=== PATIENT | male | born 1955 | race Caucasian/White ===

== ENCOUNTER 2023-10-08 12:00 | Inpatient (IN) | payer MEDICARE, SELFPAY ==
[2023-10-02] VITALS (8 sets, daily range): BP systolic 137–193; BP diastolic 70–97
[2023-10-02 14:15] LABS: % Basophils 0.7 % (0-2); % Eosinophils 0.7 % (0-6); % Immature Granulocytes 0.9 % (0-0.5); % Lymphocytes 21.9 % (20.5-51.1); % Monocytes 6.6 % (1.7-9.3); % Neutrophils 69.2 % (42.2-75.2); Absolute Basophils 0.1 10^3/uL (0-0.2); Absolute Eosinophils 0.1 10^3/uL (0-0.7); Absolute Immature Granulocytes 0.1 10^3/uL (0-0.05); Absolute Lymphocytes 1.8 10^3/uL (1.2-3.4); Absolute Monocytes 0.5 10^3/uL (0.1-0.6); Absolute Neutrophils 5.7 10^3/uL (1.4-6.5); Hematocrit 38.8 % (39.0-52.0); Hemoglobin 13.7 g/dL (13.0-18.0); Mean Corp Hgb Conc. 35.3 g/dL (33.0-37.0); Mean Corpuscular Hgb 28.4 pg (27.0-31.0); Mean Corpuscular Volume 80.5 fL (80.0-94.0); Nucleated Red Blood Cells % 0 % (-); Platelet Count 434 10^3/uL (130-400); Red Blood Cell Count 4.82 10^6/uL (4.70-6.10); Red Cell Dist. Width 14.3 % (11.5-14.5); White Blood Cell Count 8.2 10^3/uL (4.8-10.8)
[2023-10-02 14:26] LABS: ALT (SGPT) 11 U/L (0-50); AST (SGOT) 17 U/L (17-59); Albumin 4.5 g/dl (3.5-5.0); Alkaline Phosphatase 131 U/L (38-126); Blood Urea Nitrogen 18 mg/dl (9-20); Calcium 10.2 mg/dl (8.4-10.2); Carbon Dioxide 24 mmol/L (22-30); Chloride 92 mmol/L (98-107); Glucose 286 mg/dl (70-99); Sodium 136 mmol/L (135-145); Total Bilirubin 0.9 mg/dl (0.2-1.3); Total Protein 7.2 g/dl (6.3-8.2); eGFR > 60.00
--- NOTE | 2023-10-02 18:09 | ED.GENMED ---
History of Present Illness
General
Chief Complaint: Breathing Problem
Source: patient and family
Exam Limitations: none
Time Seen by Provider: 10/02/23 17:10
Nursing documentation reviewed up to this point in time: agreed with
Travel History
Have you had any contact with someone who has COVID-19?: No
Do you have any symptoms of coronavirus? Fever > 100 degrees, chills, cough, shortness of breath, sore throat, loss of taste or smell, muscle aches, or headache?: No
History of Present Illness
History of Present Illness:
Patient is a 68-year-old male with past medical history of chronic pain, diabetes skin cancer ,depression ,brought by family for evaluation. Family reports patient has a history of noncompliance has not taken his medicine in over a month for
diabetes. They report pt has a history chronic pain family is concerned that he has been using hydrocodone. Pt admits to using hydrocodone but then reports he stopped because he was loosening. Patient was brought to the ER because they found him
on the floor .brother and sister both here sister reports that she feels that he is getting up and not taking care of himself. They do tell me that about 1 month ago they found him in the basement overdosed on pills and had Saran wrap wrapped
around his body. They did not bring patient to hospital for that episode.
Patient does present awake alert. He complains of pain to his right shoulder.
Patient tells me he does not take his insulin because he does not eat and does not have an appetite. He has not taken any insulin or his diabetic oral medication as well.
He denies any fever chills
Past History
Past History
ED Past Medical History: Other (Diabetes, small fiber peripheral neuropathy, IBS, prostate cancer)
Social History
Tobacco: Non-smoker
Alcohol: None
Drug: None
Living: with family
Review of Systems
Review of Systems
Allergies reviewed?: Yes
Other source history: family
All Other Systems: ROS reviewed and negative except as documented in HPI and ROS
Constitutional: Reports fatigue
Respiratory: Reports no symptoms
Cardiac: Reports no symptoms
ABD/GI: Reports anorexia
: Reports no symptoms
Musculoskeletal: Reports other (right shoulder pain )
Skin: Reports no symptoms
Neurological: Reports no symptoms
Psychiatric: Reports depression
Phy Exam
General Physical Exam
General Presentation: no apparent distress
General age: appears older than age
General Skin: warm and dry
General Habitus: frail
General Mental: alert
General Hydration: dry mucous membranes
Cardiovascular Exam
Cardiovascular Exam: regular rate/rhythm, no murmur and normal peripheral pulses
Pulmonary Exam
Pulmonary Exam: lungs clear and no respiratory distress
Gastrointestinal Exam
Gastrointestinal Exam: non tender and soft
Neurological Exam
Neurological Exam: alert and oriented x3
[place] Coma Scale
Eye Opening: Spontaneous
Verbal Response: Oriented
Motor Response: Obeys Commands
GCS Total Score: 15
Musculoskeletal Exam
Musculoskeletal Exam: full ROM and other (Normal inspection to right shoulder full range of motion but patient complains of discomfort)
Skin Exam
Skin Exam: normal color, warm/dry and other (Scattered areas of redness to face scalp, old appearing laceration to dorsal left forearm)
Psychiatric Exam
Psychiatric Exam: depressed and other (Flat affect, admits to depression denies suicidal thoughts)
Scores
Heart Failure Risk
Heart Failure Risk Score: Not Applicable
Course
Orders/Labs/Results
Orders:
Orders
10/02/23 13:54
EKG [Electrocardiogram (*1)] Urgent
Reason for Study: Shortness of Breath
CR Shoulder - Right Min 2 View Urgent
Reason For Exam: pain
10/02/23 13:55
EKG- Treatment ONCE
10/02/23 14:04
Complete Blood Count/With Diff Urgent
Comprehensive Metabolic Panel Urgent
10/02/23 18:17
0.9% Sodium Chloride 1000 ml [Nss] 1,000 ml IV BOLUS
Potassium Chloride 10% Elixir [KCl Elixir] 40 meq PO NOW STA
Abnormal Lab Results
10/02/23
14:04
Hct 38.8 L %
(39.0-52.0)
Plt Count 434 H 10^3/uL
(130-400)
Abs Immat Gran (auto) 0.1 H 10^3/uL
(0-0.05)
Immature Gran % 0.9 H %
(0-0.5)
Potassium 3.0 L mmol/L
(3.5-5.1)
Chloride 92 L mmol/L
(98-107)
Glucose 286 H mg/dl
(70-99)
Alkaline Phosphatase 131 H U/L
(38-126)
10/02/23 14:04
10/02/23 14:04
Vital Signs
Initial and Last Documented VS:
Initial Vital Signs
Temp Pulse Resp BP Pulse Ox
98.5 F 76 18 152/74 100
10/02/23 13:50 10/02/23 13:50 10/02/23 13:50 10/02/23 13:50 10/02/23 13:50
Last Documented Vital Signs
Temp Pulse Resp BP Pulse Ox
98.5 F 76 18 152/74 100
10/02/23 13:50 10/02/23 13:50 10/02/23 13:50 10/02/23 13:50 10/02/23 13:50
MDM/Problems Addressed
Differential Diagnosis Includes:
Not limited to failure to thrive hyperglycemia electrolyte abnormality dehydration depression
MDM/Problems Addressed:
Patient is a 68-year-old male who was brought by family. Patient's brother and sister brought him here as they are concerned he is not eating and drinking he is giving up he is failure to thrive. He is awake alert very cachectic. He is a diabetic
but stopped medications 1 month ago. He denies any chest pain shortness of breath. Complains of right shoulder pain. Family reports patient is laying on his right side on his right shoulder most of the day. He has not been eating or drinking for
the past 1 month .
He denies any fevers and is afebrile with a normal white count stable hemoglobin potassium low at 3.0 normal kidney function normal sodium . No acute findings on shoulder x-ray no trauma. Patient reportedly had a suicide attempt a month ago as per
family he was not brought to the ER for that. He does admit to feeling depressed and is on depression medicine but denies any suicidal thoughts or ideation presently.
Patient was given fluids potassium here in the ER will require admission for failure to thrive. Patient may need rehab. Patient is agreeable to this
*Critical Care Note
Total Time (30-74mins, 75-104mins- exclusive of procedures): Not Applicable
ED Attending Note
-
Portions of this chart may have been created with voice recognition software.� Occasional wrong word or��sound alike� substitutions may have occurred due to the inherent limitations of voice recognition software.
Discharge Plan
Departure
Patient Disposition: Admit
Date of Disposition: 10/02/23
Time of Disposition: 19:25
Admit to: Med/Surg
Admit to doctor: hospitalist
Presentation/result/management discussed w/ accepting MD/DO: Hospitalist
Patient with high blood pressure during this ER visit?: Yes
Condition: Fair
Covid-19: Not Applicable
Discharge Problem:
Adult failure to thrive, Acute hypokalemia
Prescriptions:
No Action
atorvastatin [Lipitor] 40 MG tablet
40 mg PO DAILY
trazodone 50 MG tablet
25 mg PO HS
tramadol 50 MG tablet
50 mg PO DAILY PRN (Reason: pain)
amlodipine 10 MG tablet
10 mg PO DAILY
pantoprazole 40 MG tablet,delayed release (DR/EC)
40 mg PO DAILY
insulin NPH isoph U-100 human [Novolin N NPH U-100 Insulin] 1,000 UNITS/10 ML suspension
0 units SC AC
Patient Comments:
Sliding scale
lisinopril 5 MG tablet
5 mg PO DAILY
ipratropium bromide 1 SPRAY spray,non-aerosol
2 spray intranasal DAILY
pregabalin [Lyrica] 100 MG capsule
100 mg PO BID
Referrals:
Eden Arreguin DO [Family Provider] -
Interventions
Interventions:
*Risk Screen - Suicide Last Done: 10/02/23 13:50
*General Assessment Last Done: 10/02/23 13:50
*Neglect/Abuse Screening Last Done: 10/02/23 17:13
*ED COVID-19 Vaccine History Last Done: 10/02/23 13:50
ED- Cardiac Assessment Last Done: 10/02/23 18:50
ED- Pulmonary Assessment Last Done: 10/02/23 18:50
Discharge Date and Time
Print Language: CHINESE
[2023-10-02] MEDS: KCL ELIXIR 40 MEQ PO (18:44)
[2023-10-02] MEDS: NSS 1000 IV ×2 (18:45→22:36)
[2023-10-02] MEDS: TORADOL 15 MG IV (19:37)
--- NOTE | 2023-10-02 19:39 | W.PN.UPDATE ---
Addendum entered and electronically signed by Mariela Rubin MD 10/02/23 20:31:
On exam patient is frail appearing, cachectic. poor dental hygiene. non-labored respirations, abdomen benign, no swelling, scattered erythema on face and scalp. patient able to communicate clearly but affect flat
Original Note:
Update Note
Progress Note Update
This update note will serve as an addendum to the H&P completed by Macey TUCKER.
I saw and examined the patient.
The PATTERNMAKER METAL BENCH's note was reviewed and I agree with the note.
Comment:
Mr. Leonidas Minaya is a 68 yo man with hx DM, prostate CA, skin cancer, depression with an episode of SI last month (was not brought to the hospital) presents to the ER for family evaluation for failure to thrive. Patient lives in the basement of a
house with his siblings. He has history depression and chronic pain on opiate. He has had no appetite and therefore has not been taking his insulin because he doesn't want his sugar to go too low. He was found on floor by siblings today and
agreed to come to hospital given pain in right shoulder.
Triage vitals: T 98.5, P 76, RR 18, BP 152/74, SpO2 100%
Labs: WBC 8.2, Hg 13.7, PLT 434, Na 136, K+ 3.0, Cr 0.7, Glucose 286, Alk Phos 131
Shoulder X-Ray
FINDINGS:
2 radiographs of the right shoulder were obtained.
There is no fracture or dislocation.
The regional osseous system is normal in architecture.
IMPRESSION:
Normal.
Failure to Thrive
-admit to observation
-add on CK
-IVF gentle
-dietary consult
-PT/OT
-patient will likely need placement
Depression
-psychiatry consult
-hold ALUMINUM HYDROXIDE PROCESS OPERATOR Zoloft as patient states he has not been taking
Hypokalemia
-replete
-recheck tomorrow
-add on Mag
Chronic pain, opiate dependence
-change norco to q 12 PRN (from q8) given likely contributing to anorexia and FTT
-lidocaine patch
-xray shoulder without fracture
Diabetes
-ISS low for now given low appetite
-PATTERNMAKER METAL BENCH DM consult
-add on A1c
Neuropathic pain
-continue ALUMINUM HYDROXIDE PROCESS OPERATOR Pregabalin
DNR - patient is coherent during my conversation; denies SI. He appears competent to make this decision stating 'I've had a great life and now I'm old with chronic health conditiions.'
--- NOTE | 2023-10-02 19:55 | HPS.HSE ---
Family Physician
-
Family Physician: Eden Arreguin
Chief Complaint
-
Failure to Thrive
History of Present Illness
Patient is a 68 y/o male past medical history of diabetes mellitus, hypertension, chronic pain and depression who presents with failure to thrive. Additional history is obtained from patient's brother and sister at the bedside. Patient lives in the
basement of the house where his sister lives. Patient has not been taking care of himself over the past month or so. Family notes he stopped taking his insulin for his diabetes, and stopped eating. Family reports patient has been experiencing
worsening depression, and he did attempt suicide several weeks ago but they did not bring him the emergency department for evaluation. Patient has been lying around for several days, and family brought him to the emergency department for evaluation.
Medical History
Past Medical History
Past Medical History: Reports Other
Additional Past Medical History:
Diabetes Mellitus, Type II
Essential Hypertension
Hyperlipidemia
GERD
Irritable Bowel Syndrome
Prostate Cancer
Chronic Pain
Depression
Past Surgical History: Reports Other
Additional Past Surgical History:
Spinal Stimulator
Social History
Tobacco: Former Smoker (Quit about 20 years ago)
Alcohol: Former
Family History
Family History: Not pertinent
Allergies / Home Medications
Allergies reflects when Allergies were last updated in [facility].
Home Medications with original date entered in [facility]
Allergy/Medication List:
Allergies
Allergy/AdvReac Type Severity Reaction Status Date / Time
No Known Allergies Allergy Verified 10/02/23 13:54
Home Medications
hydrocodone 5 mg-acetaminophen 325 mg tablet 1 tab PO Q8H PRN moderate pain 10/02/23
losartan 50 mg-hydrochlorothiazide 12.5 mg tablet 1 tab PO DAILY 10/02/23
pregabalin 150 mg capsule 150 mg PO Q8H nerve/muscle pain 10/02/23
sertraline 25 mg tablet 25 mg PO DAILY 10/02/23
sertraline 50 mg tablet 50 mg PO DAILY 10/02/23
tizanidine 4 mg tablet 4 mg PO Q8H PRN muscle spasms 10/02/23
Review of Systems
-
A 12 point ROS was completed and negative except as noted: Yes
Constitutional: Reports Weight Loss; Denies Fever or Chills
Respiratory: Denies Cough or Trouble Breathing
Cardiac: Denies Chest Pain or Palpitations
Abdomen/GI: Reports Anorexia
Physical Exam
Vital Signs
Vital Signs
Temp Pulse Resp BP Pulse Ox
98.5 F 76 18 152/74 100
10/02/23 13:50 10/02/23 13:50 10/02/23 13:50 10/02/23 13:50 10/02/23 13:50
Physical Exam
General: Conversant, Appears Chronically Ill and Cachectic
HEENT: Other (Dry Mucous Membrane; Poor Dentition)
Respiratory: Clear and Non Labored Respirations
Cardiac: S1/S2 and Regular Rhythm
GI: Soft and Non Tender
Rectal: Deferred by Provider
Musculoskeletal: No Clubbing, No Cyanosis and No Edema
Skin: Warm and Dry
Neuro: Awake, Alert, Oriented and Nonfocal/grossly intact
Psych: Calm and Depressed
Laboratory Results
-
10/02/23 14:04
10/02/23 14:04
Laboratory Results
Total Bilirubin 0.9 mg/dl (0.2-1.3) 10/02/23 14:04
AST 17 U/L (17-59) 10/02/23 14:04
ALT 11 U/L (0-50) 10/02/23 14:04
Alkaline Phosphatase 131 U/L (38-126) H 10/02/23 14:04
Data Reviewed
-
Lab Data: Labs Reviewed by me
Impression/Plan
-
Failure to Thrive, suspect related to Severe Depression
-Consult Psych
Hypokalemia
-Replace potassium
-Check magnesium level
Severe Protein Calorie Malnutrition
-Consult Dietary
Chronic Pain s/p Spinal Stimulator
-Suspect component for peripheral neuropathy
-Continue Lyrica 150mg TID
-Decrease hydrocodone/acetaminophen [id number]
-Add Lidocaine to Right Shoulder
Diabetes Mellitus, Type II
-Check HgbA1c
-Monitor sugars and continue coverage insulin
-Consider adding long acting insulin based on sugar
Essential Hypertension
-Patient has not taken meds for several weeks
-Monitor blood pressure closely
DVT proph: Lovenox
Code Status: DNR
[2023-10-02 20:20] LABS: Magnesium 2.1 mg/dl (1.6-2.3)
[2023-10-02] MEDS: KCL 260 MEQ IV (20:49)
[2023-10-02 20:51] LABS: TSH Reflex To Free T4 0.97 uIU/ml (0.47-4.68)
[2023-10-02 21:51] LABS: Vitamin B12 758 pg/ml (239-931)
[2023-10-02 22:22] LABS: Creatine Phosphokinase 42 U/L (55-170)
[2023-10-02] MEDS: LYRICA 150 MG PO (22:42)
[2023-10-03] VITALS (7 sets, daily range): BP systolic 134–166; BP diastolic 64–84; PULSE 86; BMI 20.4; BMI 19.4
[2023-10-03] MEDS: MELATONIN 5 MG PO (00:55)
[2023-10-03 06:46] LABS: Hematocrit 35.7 % (39.0-52.0); Hemoglobin 12.3 g/dL (13.0-18.0); Mean Corp Hgb Conc. 34.5 g/dL (33.0-37.0); Mean Corpuscular Hgb 28.3 pg (27.0-31.0); Mean Corpuscular Volume 82.1 fL (80.0-94.0); Mean Platelet Volume 8.9 fL (7.4-10.4); Platelet Count 352 10^3/uL (130-400); Red Blood Cell Count 4.35 10^6/uL (4.70-6.10); Red Cell Dist. Width 14.4 % (11.5-14.5); White Blood Cell Count 6.6 10^3/uL (4.8-10.8)
[2023-10-03 07:17] LABS: Blood Urea Nitrogen 17 mg/dl (9-20); Calcium 9.3 mg/dl (8.4-10.2); Carbon Dioxide 25 mmol/L (22-30); Chloride 104 mmol/L (98-107); Estimated Creatinine Clearance 90 ml/min; Glucose 164 mg/dl (70-99); Potassium 3.3 mmol/L (3.5-5.1); Sodium 138 mmol/L (135-145); eGFR > 60.00
--- NOTE | 2023-10-03 07:42 | W.PN.HOSP.TC ---
Today's Communication/Plan
-
see A/P
Assessment / Plan
Assessment / Plan
HPI: 68 yo man with hx DM, prostate CA, skin cancer, depression with an episode of SI last month (was not brought to the hospital) presented to the ER by family for evaluation of failure to thrive. Patient lives in the basement of a house with his
siblings. He has history of depression and chronic pain on opiate. He has had no appetite and therefore has not been taking his insulin because he doesn't want his sugar to go too low. He was found on floor by siblings and agreed to come to
hospital given pain in right shoulder.
Shoulder X-Ray: Normal.
A/P:
# Failure to Thrive
CPK at 40 hence r/o rhabdo
observe off additional gentle IVF
dietary consult
PT/OT
patient will likely need placement
# Depression
TSH WNL at 0.97
psychiatry consult
hold ASSISTANT PURCHASING MANAGER Zoloft as patient states he has not been taking anyway
# Hypokalemia
replete
Mag level WNL
# Chronic pain, opiate dependence
change ASSISTANT PURCHASING MANAGER norco to Q12 PRN (from q8) given likely contributing to anorexia and FTT
lidocaine patch
xray shoulder without fracture
# Neuropathic pain and ambulatory dysfunction
continue ASSISTANT PURCHASING MANAGER Pregabalin
PT OT eval as above
# Diabetes
ISS low for now given low appetite
MEAT STUFFER DM consult
Follow A1c
DVT ppx: Lovenox SQ
DNR - patient is coherent during conversation; denies SI. He appears competent to make this decision stating 'I've had a great life and now I'm old with chronic health conditions.'
Anticipated Discharge: 24 - 48 hours
Subjective/Interval History
-
Date of Service: October 03, 2023
Objective Data
-
Labs:
Laboratory Results
10/03/23
06:09
WBC 6.6
Hgb 12.3 L
Hct 35.7 L
Plt Count 352
Sodium 138
Potassium 3.3 L
Chloride 104
Carbon Dioxide 25
BUN 17
Creatinine 0.6 L
Glucose 164 H
Calcium 9.3
Vital Signs:
Vital Signs
Temp Pulse Resp BP Pulse Ox
36.9 C 78 19 137/64 98
10/02/23 13:50 10/03/23 00:45 10/03/23 00:45 10/03/23 00:00 10/02/23 21:00
Review of Systems
-
All other systems: Reviewed and negative
Neuro: Reports Other (chronic BL LE neuropathy)
Physical Exam
-
General: Well Developed, No Apparent Distress, Comfortable, Conversant and Appears Chronically Ill; Negative Respiratory Distress
HEENT: Normocephalic, Atraumatic, Nose Appears Normal and Ears Appear Normal; Negative Oxygen
Respiratory: Clear to Auscultation and Non Labored Respirations; Negative Accessory Resp Muscle Use
Cardiac: Regular Rhythm and S1/S2
GI: Soft, Nontender, Nondistended and Normal Bowel Sounds
Skin: Warm and Dry
Neuro: Awake, Alert and Oriented
Psych: Calm and Intact Judgement/Insight
Data Reviewed
-
Labs: Labs Reviewed by me
[2023-10-03 08:21] LABS: Glucose - Point of Care 183 mg/dl (70-99)
[2023-10-03 08:42] LABS: Glycohemoglobin (HgbA1c) 10.5 % (4.0-5.6)
[2023-10-03] MEDS: LYRICA 150 MG PO ×3 (08:54→21:36)
[2023-10-03] MEDS: KCL 40 MEQ PO (08:54)
[2023-10-03] MEDS: LIDOCAINE 4% PATCH 1 PATCH TOPICAL (08:55)
[2023-10-03] MEDS: NOVOLOG FLEXPEN-LOW RESISTANCE 1 UNITS SC (11:21)
[2023-10-03] MEDS: NOVOLOG FLEXPEN-LOW RESISTANCE SC ×2 (11:43→17:40)
[2023-10-03 13:29] LABS: Glucose - Point of Care 272 mg/dl (70-99)
[2023-10-03] MEDS: NOVOLOG FLEXPEN-LOW RESISTANCE 3 UNITS SC (13:44)
--- NOTE | 2023-10-03 14:06 | CM ---
Patient seen at bedside in ED. Patient stated that he attempted to hurt himself a month ago, with several methods, pills, bag over head and cutting wrists and he was not taken for treatment by family per patient, patient stated that 'none of his
efforts worked'. Patient stated that he lives with his sister in the basement and has had no control over his bladder for last month. Patient indicated that he had been depressed regarding his circumstances for a while. Patient indicated that his
PCP is Dr. Arreguin and that he was requesting to go to a SNF for assistance to care for himself. Patient uses the [facility]. CM reviewed OBS/ISRAEL form and patient completed form, provided to ammunition storage superintendent for scanning. CM called to patient sister,
Roma who indicated that she was in a physician office and would call CM back. CM reached out to Psych, awaiting assessment. Patient indicated that he has been in a psych facility many years ago (age 33) when all his friends were dying. Patient has
been under the care of a psychiatrist since age 16 to assist him with family relationships and 'being murillo'. Patient indicated that he has not had any other placements for psychiatric supports. Patient currently is OBS and his insurance will not
cover placement. PT/OT recommendation SNF vs home Health due to inconsistent presentation, but patient would need to do full flight of stairs to return home. CM will reach out to SNF options to see if he will be accepted as possible private pay or
MA pending. CM will continue to follow for discharge planning needs.
plan; SNF placement pending Psych assessment and possible level II Passr.
--- NOTE | 2023-10-03 15:51 | CON.MD ---
Consultation - Medical
-
patient seen chart reviewed. spoke with case management. patient is a 68 year old male brought to by family with whom he lives. he was residing in the basement of his sister's and her partner's home . he has been noted to be increasingly
depressed. he made an effort to kill himself by superficially cutting his wrists. he said he feels his body deteriorating and he has not much to look forward to. 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
world. 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 ' you had to own 'your gayness' i didn't come out i flew the hell out'. he has lost 40 lbs in the past several months. no appetite he believes he
has cancer worries about bladder ca particularly as he had prostate ca dx15 years ago. . he does know he has dm and could not afford insulin although now he knows how to get it 'at [facility] he has neuropathy. says he cannot feel his feet and falls
when he tries to stand. if he manages to stand he loses control of bladder and somtimes bowels. he does not enjoy much. no energy. he says he is willing to undergo tests to see what is wrong with him and whether his life can be improved but he
does not have much luis f that this will be the case. pcp put him on zoloft but he took it only three days
past psych hx was in some sort of psychotherapy for much of his life. needed support with all the losses he suffered many friends of aids in his twenties and 30's he nursed both of his parents until they . he was hospitalized psych once
when a friend and he despaired himself. recently prescribed zoloft. not a great fan of meds.
medical hx diabetes neuropathy chronic pain opiate dep lyrica for pain tizanidine for spasms fell c/o shoulder pain and sob shoulder xr normal no cxr noted hx prostate cancer Complaint of incontinence bladder and bowel.. ua pending b12
normal tsh normal low potassium 3.3 mild anemia noted lesions on much of his body arnol left arm large eschar ringed in red
fh depression etoh abuse
substance abuse smokes cannabis for sleep and pain
social grew up locally oldest of three kids. close to sibs and two nephews. 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 lives in sister's basement traveled all over the
world. was a marathon runner.
mse frail appearing 68 year old appears older than age physically but very emotive and engaged in this interview. speech nl rate and tone goal oriented no psychosis mood is dysphoric and rationalizes wish to bc he is frail physically and says
he can only look forward to more deterioration of his body. no psychosis will contract for safety in hospital while his illnesses are addressed above aver intell insight judgment fair, cognition intact
dx major depression
plan while i do see patient as depressed i also feel he may be medically ill ?cancer' certainly appears cachectic but dm also is a major issue and can be the cause. patient is agreeable to hospital and medical workup. there seem to be a number of
issues to address including but perhaps not limited to ??urology consult to allay his fears (or substantiate them ) of bladder cancer and address urinary incontinence. cause of fecal incontinence which he also alleges may need to be addressed.
also skin lesions may need rx. will discuss with him tomorrow whether to resume sertraline or other antidepressant. check folate. psych will follow
[2023-10-03] MEDS: TYLENOL 650 MG PO ×2 (17:35→21:36)
[2023-10-03] MEDS: LOVENOX 40 MG SC (17:36)
[2023-10-03 17:41] LABS: Glucose - Point of Care 99 mg/dl (70-99)
[2023-10-03 18:39] LABS: PSA, Total - Screen < 0.06 ng/ml (0.0-4.0)
[2023-10-03 21:18] LABS: Glucose - Point of Care 196 mg/dl (70-99)
[2023-10-03] MEDS: LANTUS 0.0500000000000000028 UNITS SC (21:36)
[2023-10-03] MEDS: NORCO 5/325 1 TABLET PO (23:25)
[2023-10-04 05:47] VITALS: BMI 16.8
[2023-10-04] MEDS: TYLENOL 650 MG PO ×2 (05:51→14:05)
[2023-10-04 07:10] VITALS: BP 148/81
[2023-10-04 07:22] LABS: Glucose - Point of Care 55 mg/dl (70-99)
[2023-10-04 07:41] LABS: Glucose - Point of Care 66 mg/dl (70-99)
[2023-10-04 08:03] LABS: Glucose - Point of Care 189 mg/dl (70-99)
[2023-10-04] MEDS: OMNIPAQUE 50 ML PO (08:23)
[2023-10-04] MEDS: LIDOCAINE 4% PATCH 1 PATCH TOPICAL (08:25)
[2023-10-04] MEDS: LYRICA 150 MG PO ×3 (08:25→21:00)
[2023-10-04] MEDS: NOVOLOG FLEXPEN-LOW RESISTANCE SC ×2 (08:26→13:24)
[2023-10-04 11:23] LABS: Blood Urea Nitrogen 12 mg/dl (9-20); Calcium 9.3 mg/dl (8.4-10.2); Carbon Dioxide 31 mmol/L (22-30); Chloride 98 mmol/L (98-107); Estimated Creatinine Clearance 76 ml/min; Glucose 55 mg/dl (70-99); Magnesium 1.9 mg/dl (1.6-2.3); Phosphorus 2.1 mg/dl (2.5-4.5); Potassium 3.1 mmol/L (3.5-5.1); Sodium 136 mmol/L (135-145); eGFR > 60.00
--- NOTE | 2023-10-04 11:29 | W.PN.HOSP.TC ---
Today's Communication/Plan
-
see A/P
Assessment / Plan
Assessment / Plan
HPI: 68 yo man with hx DM, prostate CA, skin cancer, depression with an episode of SI last month (was not brought to the hospital) presented to the ER by family for evaluation of failure to thrive. Patient lives in the basement of a house with his
siblings. He has history of depression and chronic pain on opiate. He has had no appetite and therefore has not been taking his insulin because he doesn't want his sugar to go too low. He was found on floor by siblings and agreed to come to
hospital given pain in right shoulder.
Shoulder X-Ray: Normal.
A/P:
# Failure to Thrive
# severe protein caloric malnutrition
CPK at 42 hence r/o rhabdo
observe off additional gentle IVF
dietary on board
PT/OT [facility] SNF vs ; patient will likely need placement
CT CAP ordered for cancer work up, noted liver lesion
Will check MRI AP for liver lesion
HIV negative, PSA negative
# Depression
TSH WNL at 0.97
psychiatry on board, [facility] medical/cancer work up, restarted Zoloft
# Hypokalemia
# Hypophosphatemia
# Likely refeeding syndrome
resume lytes
cont carb control diet
# Chronic pain, opiate dependence
change ACTUARY norco to Q12 PRN (from q8) given likely contributing to anorexia and FTT
xray shoulder without fracture
lidocaine patch over R shoulder
# Neuropathic pain and ambulatory dysfunction
continue ACTUARY Pregabalin
PT OT eval as above
# Diabetes
# hypoglycemia
A1C 10.5 %
cover with ISS low
Off further Lantus due to hypoglycemia noted (he received 5 units)
DVT ppx: Lovenox SQ
DNR - patient is coherent during conversation; denies SI. He appears competent to make this decision stating 'I've had a great life and now I'm old with chronic health conditions.'
DW Psych
Anticipated Discharge: 24 - 48 hours
Subjective/Interval History
-
Date of Service: October 04, 2023
Objective Data
-
Labs:
Laboratory Results
10/04/23
09:44
Sodium 136
Potassium 3.1 L
Chloride 98
Carbon Dioxide 31 H
BUN 12
Creatinine 0.5 L
Glucose 55 L*
Calcium 9.3
Vital Signs:
Vital Signs
Temp Pulse Resp BP Pulse Ox
36.4 C 77 18 148/81 97
10/04/23 07:10 10/04/23 07:10 10/04/23 07:10 10/04/23 07:10 10/04/23 07:10
I&O
10/03/23 10/04/23 10/05/23
06:59 06:59 06:59
Intake Total 480 / 480
Output Total 180 / 180
Balance 300 / 300
Review of Systems
-
All other systems: Reviewed and negative
Abdomen/GI: Reports Other (bowel and bladder incontinent )
Genitourinary: Reports Other (bowel and bladder incontinent )
Neuro: Reports Other (chronic BL LE neuropathy)
Physical Exam
-
General: Well Developed, No Apparent Distress, Comfortable, Conversant, Appears Chronically Ill and Cachectic; Negative Respiratory Distress
HEENT: Normocephalic, Atraumatic, Nose Appears Normal and Ears Appear Normal; Negative Oxygen
Respiratory: Clear to Auscultation and Non Labored Respirations; Negative Accessory Resp Muscle Use
Cardiac: Regular Rhythm and S1/S2
GI: Soft, Nontender, Nondistended and Normal Bowel Sounds
Skin: Warm and Dry
Neuro: Awake, Alert and Oriented
Psych: Calm and Intact Judgement/Insight
Data Reviewed
-
Labs: Labs Reviewed by
[2023-10-04 11:38] LABS: HIV Combo Negative (Negative)
--- NOTE | 2023-10-04 11:41 | PN.CDI ---
CDI
- -
CDI:
Physician Documentation Request
Admit Date: 10/02/23 20:36
Dear Doctor Sushant,
Please review the following and provide your response in the progress notes.
Clinical Indicators:
Per RD Assessment on 10/02: Patient meets ASPEN/AND criteria for Severe Protein Calorie Malnutrition (Social and Environmental Circumstances) as evidenced by </= 50% energy needs for greater than or equal to 1 month and loss of fat over orbital,
tricep and rib cage as well as Loss of muscle over temporal, buccal, clavicle and pectoralis
BMI 16.8
Based on the information, which of the following most accurately represents the patient's nutritional status?
Severe Malnutrition
Moderate Malnutrition
Other (please specify)
Basile Criteria (ACP Hospitalist 2017)
2 or more criteria must be present for either
non severe or severe malnutrition
Note that the criteria differs related to the
presence of an acute or chronic illness
Acute Illness Chronic Illness
Energy Intake Non Severe: <75% for >7 days Non Severe: <75% for >1 month
Severe: <50% for >5 days Severe: <75% for >1 month
Weight Loss Non Severe: 1-2% over 1 week Non Severe: 5% over 1 month
5% over 1 month 7.5% over 3 months
7.5% over 3 months 10% over 6 months
1 year N/A 20% over 1 year
Severe: >2% over 1 week Severe: >5% over 1 month
>5% over 1 month >7.5% over 3 months
>7.5% over 3 months >10% over 6 months
1 year N/A >20% over 1 year
Body Fat Non Severe: Mild Decrease Non Severe: Mild Loss
Severe: Moderate Decrease Severe: Severe Loss
Muscle Mass Non Severe: Mild Decrease Non Severe: Mild Loss
Severe: Moderate Decrease Severe: Severe Loss
Fluid Accumulation Non Severe: Mild Accumulation Non Severe: Mild Accumulation
Severe: Moderate to severe Severe: Moderate to severe
accumulation accumulation
Reduced Returned Materials Inspector Strength Non Severe: N/A Non Severe: N/A
Severe: Measurably reduced Severe: Measurably reduced
Additional criteria that can be used to Determine if Mild or Moderate Malnutrition (Merck Manual 2018)
Mild Moderate Severe
Albumin gm/dl <3.0 gm/dl <2.5 gm/dl <2.0 gm/dl
Pre Albumin mg/dl <15 gm/dl <10 mg/dl <5.0 mg/dl
BMI <18.5 <17 <16
Use of terms such as suspected, likely, concern for, or probable (associated with a specific diagnosis that is being evaluated, monitored, or treated as if it exists) are acceptable and can be coded in the inpatient setting, when documented at the
time of discharge.
Thank you,
Daylin KEYES, RN, CCDS
CDI Specialist
[phone]
Please use your independent medical judgment in providing your response.
[2023-10-04 12:23] LABS: Folate 5.8 ng/ml (2.76-20)
[2023-10-04 12:44] LABS: Glucose - Point of Care 58 mg/dl (70-99)
[2023-10-04 13:05] LABS: Glucose - Point of Care 92 mg/dl (70-99)
--- NOTE | 2023-10-04 13:31 | W.PN.UPDATE ---
Update Note
Progress Note Update
patient seen chart reviewed. discussed w dr mathias and nursing. the patient talked about his life experiences particularly about his diabetes and failure to manage this and subsequent deterioration in his health. he believes he has malignancy and
given the results of abdominal cat scan which i saw after i met with him this may die turner to be true. he is not suicidal at this time but he seems to be not unhappy with the prospect of not living much longer given the circumstances of his life.
we discussed using zoloft which on closer inspection did help him when he took it about five years ago for three years . he did not take it reliably when it was recently restarted. he agrees to try it again and ordered 25 mg q day. psych will
continue to follow
[2023-10-04] MEDS: KCL 20 MEQ PO (13:59)
[2023-10-04] MEDS: POTASSIUM PHOSPHATE 259.090899999999976 MEQ IV (13:59)
[2023-10-04] MEDS: FLUSH (NSS) 1 FLUSH IV (14:00)
[2023-10-04 15:29] VITALS: BP 131/75
[2023-10-04 16:01] LABS: Urine Albumin Trace (Neg - Trace); Urine Bilirubin Negative (Negative); Urine Character Clear (Clear); Urine Color Yellow; Urine Glucose 1+ (Negative); Urine Ketone 1+ (Negative); Urine Leukocyte Negative (Negative); Urine Nitrite Negative (Negative); Urine Occult Blood Negative (Negative); Urine Urobilinogen Negative (Neg - 1+)
[2023-10-04 16:43] LABS: Glucose - Point of Care 197 mg/dl (70-99)
[2023-10-04 16:48] VITALS: BP 132/69; PULSE 91; O2SAT 97
[2023-10-04] MEDS: LOVENOX 40 MG SC (17:51)
[2023-10-04] MEDS: NOVOLOG FLEXPEN-LOW RESISTANCE 1 UNITS SC (17:52)
[2023-10-04] MEDS: NORCO 5/325 1 TABLET PO (21:00)
[2023-10-04 21:31] LABS: Glucose - Point of Care 130 mg/dl (70-99)
[2023-10-04 23:33] VITALS: BP 130/79
[2023-10-05 03:46] LABS: Glucose - Point of Care 120 mg/dl (70-99)
[2023-10-05] MEDS: ULTRAM 25 MG PO (04:08)
[2023-10-05 07:06] LABS: Glucose - Point of Care 136 mg/dl (70-99)
[2023-10-05 07:32] LABS: Blood Urea Nitrogen 14 mg/dl (9-20); Calcium 8.5 mg/dl (8.4-10.2); Carbon Dioxide 29 mmol/L (22-30); Chloride 102 mmol/L (98-107); Estimated Creatinine Clearance 76 ml/min; Glucose 109 mg/dl (70-99); Magnesium 1.8 mg/dl (1.6-2.3); Potassium 4.1 mmol/L (3.5-5.1); Sodium 134 mmol/L (135-145); eGFR > 60.00
[2023-10-05 07:40] VITALS: BP 134/66
[2023-10-05 08:42] LABS: Phosphorus 2.7 mg/dl (2.5-4.5)
[2023-10-05] MEDS: NOVOLOG FLEXPEN-LOW RESISTANCE SC (09:21)
[2023-10-05] MEDS: LIDOCAINE 4% PATCH TOPICAL (09:40)
[2023-10-05] MEDS: LYRICA 150 MG PO ×3 (09:40→21:13)
[2023-10-05] MEDS: ZOLOFT 25 MG PO (09:41)
--- NOTE | 2023-10-05 11:25 | W.PN.HOSP.TC ---
Today's Communication/Plan
-
see A/P
Assessment / Plan
Assessment / Plan
HPI: 68 yo man with hx DM, prostate CA, skin cancer, depression with an episode of SI last month (was not brought to the hospital) presented to the ER by family for evaluation of failure to thrive. Patient lives in the basement of a house with his
siblings. He has history of depression and chronic pain on opiate. He has had no appetite and therefore has not been taking his insulin because he doesn't want his sugar to go too low. He was found on floor by siblings and agreed to come to
hospital given pain in right shoulder.
Shoulder X-Ray: Normal.
A/P:
# Failure to Thrive
# severe protein caloric malnutrition
CPK at 42 hence r/o rhabdo
observe off additional gentle IVF
dietary on board
PT/OT [facility] SNF vs ; patient will likely need placement
CT CAP ordered for cancer work up, noted liver lesion
Will check MRI AP for liver lesion (pt has spinal stimulator, awaiting MRI department to confirm if this is compatible with MRI or not)
HIV negative, PSA negative
# Depression
TSH WNL at 0.97
psychiatry on board, [facility] medical/cancer work up, restarted Zoloft
# Hypokalemia
# Hypophosphatemia
# Likely refeeding syndrome
repleted lytes and lytes normalized
cont carb control diet
# Chronic pain, opiate dependence
change COMMUNITY LEADER norco to Q12 PRN (from q8) given likely contributing to anorexia and FTT
xray shoulder without fracture
lidocaine patch over R shoulder
# Neuropathic pain and ambulatory dysfunction
continue COMMUNITY LEADER Pregabalin
PT OT eval as above
# Diabetes
# hypoglycemia
A1C 10.5 %
cover with ISS low
Off further Lantus due to hypoglycemia noted (he received 5 units)
DVT ppx: Lovenox SQ
DNR - patient is coherent during conversation; denies SI. He appears competent to make this decision stating 'I've had a great life and now I'm old with chronic health conditions.'
DW RN
Anticipated Discharge: 24 - 48 hours
Subjective/Interval History
-
Date of Service: October 05, 2023
Objective Data
-
Labs:
Laboratory Results
10/05/23
05:41
Sodium 134 L
Potassium 4.1 D
Chloride 102
Carbon Dioxide 29
BUN 14
Creatinine 0.5 L
Glucose 109 H
Calcium 8.5
Vital Signs:
Vital Signs
Temp Pulse Resp BP Pulse Ox
36.6 C 72 17 134/66 99
10/05/23 07:40 10/05/23 07:40 10/05/23 07:40 10/05/23 07:40 10/05/23 07:40
I&O
10/04/23 10/05/23 10/06/23
06:59 06:59 06:59
Intake Total 480 / 480 840 / 840
Output Total 180 / 180 900 / 900
Balance 300 / 300 -60 / -60
Review of Systems
-
All other systems: Reviewed and negative
Abdomen/GI: Reports Other (bowel and bladder incontinent )
Genitourinary: Reports Other (bowel and bladder incontinent )
Neuro: Reports Other (chronic BL LE neuropathy)
Physical Exam
-
General: Well Developed, No Apparent Distress, Comfortable, Conversant, Appears Chronically Ill and Cachectic; Negative Respiratory Distress
HEENT: Normocephalic, Atraumatic, Nose Appears Normal and Ears Appear Normal; Negative Oxygen
Respiratory: Clear to Auscultation and Non Labored Respirations; Negative Accessory Resp Muscle Use
Cardiac: Regular Rhythm and S1/S2
GI: Soft, Nontender, Nondistended and Normal Bowel Sounds
Skin: Warm and Dry
Neuro: Awake, Alert and Oriented
Psych: Calm and Intact Judgement/Insight
Data Reviewed
-
CT Scan: Report Reviewed by me and Discussed with Patient
Labs: Labs Reviewed by me
[2023-10-05 11:59] LABS: Glucose - Point of Care 239 mg/dl (70-99)
--- NOTE | 2023-10-05 12:21 | W.PN.UPDATE ---
Update Note
Progress Note Update
Pt seen, resting in bed, looking at TV, laptop computer, lunch menu. Pt alert and oriented, pleasant, engaging, with fairly cheerful affect, good eye contact. He discussed multiple losses in his life, and his physical deterioration and diminished
functioning due to peripheral neuropathy, incontinence. Pt feels his quality of life going forward will be poor; also concerned he may have recurrent cancer. Pt states he has had a full life, believes in an afterlife where he will see all his old
friends. Pt denies active SI at this point. He is agreeable to restarting Sertraline at 25 mg Daily, states it has reduced crying spells.
Imp: Unspecified depressive d/o, R/o MDD
Rec: continue with trial of Sertraline 25 mg QD.
will follow
[2023-10-05] MEDS: TYLENOL 650 MG PO (14:17)
[2023-10-05] MEDS: NOVOLOG FLEXPEN-LOW RESISTANCE 2 UNITS SC ×2 (14:19→17:17)
--- NOTE | 2023-10-05 14:41 | CM ---
Patient with Dx Failure to Thrive, severe protein caloric malnutrition, Neuropathic pain and ambulatory dysfunction. Seen by Psych for depression. PT & OT recommend skilled rehab.
Spoke with patient who agrees to SNF referrals for short term rehab. His preference is [facility] as it is the closest to [place], otherwise other local SNF referrals also ok. The patient is unable to pay privately for SNF. He receives
$1400/month through and would need to go to SNF under Medicaid.
6 SNF referrals placed.
Plan follow up SNF referrals.
[2023-10-05 15:38] VITALS: BP 120/68
[2023-10-05 17:08] LABS: Glucose - Point of Care 212 mg/dl (70-99)
[2023-10-05] MEDS: LOVENOX 40 MG SC (17:18)
[2023-10-05] MEDS: NORCO 5/325 1 TABLET PO (21:13)
[2023-10-05 23:45] VITALS: BP 150/78
[2023-10-06] MEDS: TYLENOL 650 MG PO ×3 (03:33→15:29)
[2023-10-06] MEDS: LIDOCAINE 4% PATCH 1 PATCH TOPICAL (03:33)
[2023-10-06 04:42] VITALS: BMI 17.0
[2023-10-06 06:56] LABS: Glucose - Point of Care 149 mg/dl (70-99)
[2023-10-06 07:20] VITALS: BP 156/73
[2023-10-06 07:29] VITALS: BP 132/73
[2023-10-06] MEDS: NOVOLOG FLEXPEN-LOW RESISTANCE SC (08:32)
[2023-10-06 08:51] LABS: Blood Urea Nitrogen 15 mg/dl (9-20); Chloride 104 mmol/L (98-107); Estimated Creatinine Clearance 77 ml/min; Glucose 136 mg/dl (70-99); Magnesium 1.8 mg/dl (1.6-2.3); Potassium 4.4 mmol/L (3.5-5.1); Sodium 135 mmol/L (135-145); eGFR > 60.00
[2023-10-06 09:00] LABS: Carbon Dioxide 27 mmol/L (22-30)
[2023-10-06] MEDS: LYRICA 150 MG PO ×3 (09:18→20:44)
[2023-10-06] MEDS: ZOLOFT 25 MG PO (09:19)
--- NOTE | 2023-10-06 11:01 | W.PN.HOSP.TC ---
Today's Communication/Plan
-
see A/P
Assessment / Plan
Assessment / Plan
HPI: 68 yo man with hx DM, prostate CA, skin cancer, depression with an episode of SI last month (was not brought to the hospital) presented to the ER by family for evaluation of failure to thrive. Patient lives in the basement of a house with his
siblings. He has history of depression and chronic pain on opiate. He has had no appetite and therefore has not been taking his insulin because he doesn't want his sugar to go too low. He was found on floor by siblings and agreed to come to
hospital given pain in right shoulder.
Shoulder X-Ray: Normal.
A/P:
# Failure to Thrive
# severe protein caloric malnutrition
CPK at 42 hence r/o rhabdo
observe off additional gentle IVF
dietary on board
PT/OT [facility] SNF vs ; patient will likely need placement
CT CAP ordered for cancer work up, noted liver lesion
Will check MRI AP for liver lesion (pt has spinal stimulator, awaiting MRI department to check compatibility)
HIV negative, PSA negative
# Chronic Bowel bladder incontinence per pt, likely 2/2 previous XRT for prostate cancer
monitor
# Depression
TSH WNL at 0.97
psychiatry on board, [facility] medical/cancer work up, restarted Zoloft
# Hypokalemia
# Hypophosphatemia
# Likely refeeding syndrome
repleted lytes and lytes normalized
cont carb control diet
# Chronic pain, opiate dependence
change MANAGER UTILITIES norco to Q12 PRN (from q8) given likely contributing to anorexia and FTT
xray shoulder without fracture
lidocaine patch over R shoulder
# Neuropathic pain and ambulatory dysfunction
continue MANAGER UTILITIES Pregabalin
PT OT eval rec SNF
# Diabetes
# hypoglycemia
A1C 10.5 %
cover with ISS low
Off further Lantus due to hypoglycemia noted (he received 5 units)
DVT ppx: Lovenox SQ
DNR - patient is coherent during conversation; denies SI. He appears competent to make this decision stating 'I've had a great life and now I'm old with chronic health conditions.'
Dispo: PT OT recc SNF
Anticipated Discharge: 24 - 48 hours
Subjective/Interval History
-
Date of Service: October 06, 2023
Objective Data
-
Labs:
Laboratory Results
10/06/23
07:02
Sodium 135
Potassium 4.4
Chloride 104
Carbon Dioxide 27
BUN 15
Creatinine 0.6 L
Glucose 136 H
Calcium 9.0
Vital Signs:
Vital Signs
Temp Pulse Resp BP Pulse Ox
36.5 C 77 18 132/73 98
10/06/23 07:29 10/06/23 07:29 10/06/23 07:29 10/06/23 07:29 10/06/23 07:29
I&O
10/05/23 10/06/23 10/07/23
06:59 06:59 06:59
Intake Total 840 / 840 360 / 360
Output Total 900 / 900 425 / 425
Balance -60 / -60 -65 / -65
Review of Systems
-
All other systems: Reviewed and negative
Abdomen/GI: Reports Other (bowel and bladder incontinent )
Genitourinary: Reports Other (bowel and bladder incontinent )
Neuro: Reports Other (chronic BL LE neuropathy)
Physical Exam
-
General: Well Developed, No Apparent Distress, Comfortable, Conversant, Appears Chronically Ill and Cachectic; Negative Respiratory Distress
HEENT: Normocephalic, Atraumatic, Nose Appears Normal and Ears Appear Normal; Negative Oxygen
Respiratory: Clear to Auscultation and Non Labored Respirations; Negative Accessory Resp Muscle Use
Cardiac: Regular Rhythm and S1/S2
GI: Soft, Nontender, Nondistended and Normal Bowel Sounds
Skin: Warm and Dry
Neuro: Awake, Alert and Oriented
Psych: Calm and Intact Judgement/Insight
Data Reviewed
-
CT Scan: Report Reviewed by me and Discussed with Patient
Labs: Labs Reviewed by me
[2023-10-06 11:44] LABS: Glucose - Point of Care 223 mg/dl (70-99)
[2023-10-06 12:10] VITALS: BP 146/68
[2023-10-06] MEDS: NOVOLOG FLEXPEN-LOW RESISTANCE 2 UNITS SC (12:25)
[2023-10-06 15:35] VITALS: BP 157/73
[2023-10-06 16:44] LABS: Glucose - Point of Care 304 mg/dl (70-99)
[2023-10-06] MEDS: LOVENOX 40 MG SC (17:01)
[2023-10-06] MEDS: NOVOLOG FLEXPEN-LOW RESISTANCE 4 UNITS SC (17:02)
[2023-10-06] MEDS: NORCO 5/325 1 TABLET PO (20:44)
[2023-10-06 21:26] LABS: Glucose - Point of Care 240 mg/dl (70-99)
--- NOTE | 2023-10-06 23:20 | PTCARENOTE ---
RN gave verbal report on pt. This RN will continue resumption of care for 10/05-10/06.
[2023-10-06 23:26] VITALS: BP 152/70
[2023-10-07 05:13] VITALS: BMI 17.0
[2023-10-07 06:27] LABS: Blood Urea Nitrogen 13 mg/dl (9-20); Calcium 9.1 mg/dl (8.4-10.2); Carbon Dioxide 29 mmol/L (22-30); Chloride 101 mmol/L (98-107); Estimated Creatinine Clearance 78 ml/min; Glucose 157 mg/dl (70-99); Phosphorus 2.7 mg/dl (2.5-4.5); Potassium 4.3 mmol/L (3.5-5.1); Sodium 135 mmol/L (135-145); eGFR > 60.00
[2023-10-07 07:55] VITALS: BP 161/76
[2023-10-07] MEDS: LIDOCAINE 4% PATCH 1 PATCH TOPICAL (08:27)
[2023-10-07] MEDS: LYRICA 150 MG PO ×3 (08:28→21:09)
[2023-10-07] MEDS: ZOLOFT 25 MG PO (08:28)
[2023-10-07] MEDS: NOVOLOG FLEXPEN-LOW RESISTANCE 1 UNITS SC (08:34)
[2023-10-07 08:35] LABS: Glucose - Point of Care 198 mg/dl (70-99)
[2023-10-07] MEDS: NORCO 5/325 1 TABLET PO ×2 (08:44→21:09)
[2023-10-07 10:53] VITALS: BP 145/85
--- NOTE | 2023-10-07 11:35 | W.PN.UPDATE ---
Update Note
Progress Note Update
Pt seen, resting in bed, in no acute distress. Pt continues to be pleasant, engaging, with good eye contact. He reports feeling somewhat sad due to isolation, more at night. Pt notes decreased crying on Zoloft, but feels it may be making him feel
worse overall. Denies any specific side effect. Pt still waiting for work-up regarding his medical status. He c/o Rt shoulder and arm pain.
Imp: Unspecified depressive d/o, R/o MDD
Rec: continue with trial of Sertraline 25 mg QD.
will follow
--- NOTE | 2023-10-07 13:29 | W.PN.HOSP.TC ---
Today's Communication/Plan
-
MRI
Zoloft
Dispo planning soon
I believe [place] is [place] for SN[place]
Assessment / Plan
Assessment / Plan
HPI: 68 yo man with hx DM, prostate CA, skin cancer, depression with an episode of SI last month (was not brought to the hospital) presented to the ER by family for evaluation of failure to thrive. Patient lives in the basement of a house with his
siblings. He has history of depression and chronic pain on opiate. He has had no appetite and therefore has not been taking his insulin because he doesn't want his sugar to go too low. He was found on floor by siblings and agreed to come to
hospital given pain in right shoulder.
Shoulder X-Ray: Normal.
A/P:
# Failure to Thrive
# severe protein caloric malnutrition
CPK at 42 hence r/o rhabdo
observe off additional gentle IVF
dietary on board
CT CAP ordered for cancer work up, noted liver lesion
Will check MRI AP for liver lesion (pt has spinal stimulator, awaiting MRI department to check compatibility)
HIV negative, PSA negative
# Chronic Bowel bladder incontinence per pt, likely 2/2 previous XRT for prostate cancer
monitor
# Depression
TSH WNL at 0.97
psychiatry on board, [facility] medical/cancer work up, restarted Zoloft
# Hypokalemia
# Hypophosphatemia
# Likely refeeding syndrome
repleted lytes and lytes normalized
cont carb control diet
# Chronic pain, opiate dependence
change GREENHOUSE FLORIST norco to Q12 PRN (from q8) given likely contributing to anorexia and FTT
xray shoulder without fracture
lidocaine patch over R shoulder
# Neuropathic pain and ambulatory dysfunction
continue GREENHOUSE FLORIST Pregabalin
PT OT eval [facility] SNF
# Diabetes
# hypoglycemia
A1C 10.5 %
cover with ISS low
Off further Lantus due to hypoglycemia noted (he received 5 units)
DVT ppx: Lovenox SQ
DNR - patient is coherent during conversation; denies SI. He appears competent to make this decision stating 'I've had a great life and now I'm old with chronic health conditions.'
Dispo: PT OT recc SNF; [place] believe [place] is [place]
Total time spent on today's encounter was 50 minutes which included time spent in counseling the patient/family regarding diagnosis and treatment plan as listed above, goals of care, and symptom management. Case was discussed with nursing staff,
specialists, and care coordinators/case management. All labs and imaging personally reviewed by me. Remainder the time spent in detailed review of previous records, lab data, imaging, and other medical provider documentation.
Anticipated Discharge: Within 24 hours
Subjective/Interval History
-
Date of Service: October 07, 2023
Objective Data
-
Labs:
Laboratory Results
10/07/23
05:40
Sodium 135
Potassium 4.3
Chloride 101
Carbon Dioxide 29
BUN 13
Creatinine 0.6 L
Glucose 157 H
Calcium 9.1
Vital Signs:
Vital Signs
Temp Pulse Resp BP Pulse Ox
98.1 F 78 18 161/76 98
10/07/23 07:55 10/07/23 07:55 10/07/23 07:55 10/07/23 07:55 10/07/23 08:00
I&O
10/06/23 10/07/23 10/08/23
06:59 06:59 06:59
Intake Total 360 / 360 1560 / 1560
Output Total 425 / 425 900 / 900
Balance -65 / -65 660 / 660
[2023-10-07 13:48] LABS: Glucose - Point of Care 283 mg/dl (70-99)
[2023-10-07] MEDS: NOVOLOG FLEXPEN-LOW RESISTANCE 3 UNITS SC (13:50)
[2023-10-07 15:55] VITALS: BP 133/63
--- NOTE | 2023-10-07 16:15 | PTCARENOTE ---
Pt MRI Results showing severe constipation, MD aware, Pt updated, plan of care ongoing.
[2023-10-07 16:44] LABS: Glucose - Point of Care 218 mg/dl (70-99)
--- NOTE | 2023-10-07 17:36 | CM ---
Pt requested [facility]
PT OT recommended SNF.
Pt is observation.
Spoke with Lisette stanton to see if he qualifies for waiver for SNF.
Lisette said pt qualifies.
Spoke with [facility] rep Holder .
Above reviewed with patient . Pt agreed.
Family to transport.
PLAN To [facility] with waiver
[2023-10-07] MEDS: NOVOLOG FLEXPEN-LOW RESISTANCE 2 UNITS SC (17:55)
[2023-10-07] MEDS: LOVENOX 40 MG SC (17:56)
[2023-10-07 21:34] LABS: Glucose - Point of Care 252 mg/dl (70-99)
--- NOTE | 2023-10-07 21:43 | VATNOTE ---
called to remove IV site from left wrist. Noted reddened area with much pain; heat applied. No swelling. PCN, Delfina, stated pain started after pt. had MRI with contrast. PCN informed of care. VAT to follow in am.
[2023-10-07 23:57] VITALS: BP 137/70
--- NOTE | 2023-10-08 | PTCARENOTE ---
Patient with a fever of 100.9. CHIEF DEPUTY COURT CLERK aware, she ordered an Incintive Spirometer. Will continue to monitor temperature
[2023-10-08 05:41] LABS: Hematocrit 32.7 % (39.0-52.0); Hemoglobin 11.3 g/dL (13.0-18.0); Mean Corp Hgb Conc. 34.6 g/dL (33.0-37.0); Mean Corpuscular Hgb 28.1 pg (27.0-31.0); Mean Corpuscular Volume 81.3 fL (80.0-94.0); Platelet Count 307 10^3/uL (130-400); Red Blood Cell Count 4.02 10^6/uL (4.70-6.10); White Blood Cell Count 9.2 10^3/uL (4.8-10.8)
[2023-10-08] MEDS: TYLENOL 650 MG PO (05:58)
[2023-10-08 06:00] VITALS: BMI 17.0
[2023-10-08 06:10] LABS: ALT (SGPT) < 10 U/L (0-50); AST (SGOT) 17 U/L (17-59); Albumin 3.2 g/dl (3.5-5.0); Alkaline Phosphatase 92 U/L (38-126); Blood Urea Nitrogen 14 mg/dl (9-20); Calcium 8.6 mg/dl (8.4-10.2); Carbon Dioxide 24 mmol/L (22-30); Chloride 101 mmol/L (98-107); Estimated Creatinine Clearance 78 ml/min; Glucose 193 mg/dl (70-99); Sodium 133 mmol/L (135-145); Total Bilirubin 0.6 mg/dl (0.2-1.3); Total Protein 5.7 g/dl (6.3-8.2); eGFR > 60.00
[2023-10-08 08:17] LABS: Glucose - Point of Care 184 mg/dl (70-99)
--- NOTE | 2023-10-08 08:24 | VATNOTE ---
Left wrist phlebitis remains tender to touch and pink , Cool compress applied will continue to monitor.
[2023-10-08 08:26] VITALS: BP 107/52
[2023-10-08] MEDS: NOVOLOG FLEXPEN-LOW RESISTANCE 1 UNITS SC (08:46)
[2023-10-08] MEDS: ZOLOFT 25 MG PO (08:47)
[2023-10-08] MEDS: LYRICA 150 MG PO ×3 (08:47→21:25)
[2023-10-08] MEDS: LIDOCAINE 4% PATCH 1 PATCH TOPICAL (08:47)
[2023-10-08 09:06] LABS: COVID-19 Antigen Negative (Negative)
[2023-10-08] MEDS: NORCO 5/325 1 TABLET PO ×2 (09:47→21:26)
[2023-10-08] MEDS: SENOKOT-S 1 TABLET PO ×2 (09:48→21:26)
--- NOTE | 2023-10-08 10:02 | CM ---
Addendum entered by Mita Snowden 10/08/23 10:08:
[facility] currently with no beds.
Original Note:
Per Facility, patient may need to a level 2 prior to accepting, [facility] requested CM discuss with [facility].
TC to [facility] to see if level 2 needs to be completed prior to skilled rehab vs possible exemption.
Await TCB.
Plan: Skilled rehab when stable.
--- NOTE | 2023-10-08 11:19 | W.PN.UPDATE ---
Update Note
Progress Note Update
Patient seen at bedside, chart reviewed, discussed with staff. Mr. Minaya tells me he continues to have many concerns regarding his health, most importantly to him, right shoulder pain that is 'unrelenting'. He tells me that 'I have no plan and no
doctor seems to be addressing it, if I have to go home like this I will just have to end it all, I will jump out of a car if I have to'. I ask him to clarify if he is feeling suicidal and he tells me 'I am not suicidal but I feel hopeless'. Zoloft
was reinitiated and he tells me he has been 'crying but I am a cry baby'. I ask if he thinks it is making things worse and should we stop it and he tells me 'no I would like to continue it for now'. He tells me that he does not want to end his life
as this would greatly upset his two nephews but he also feels he cannot go on like this. 'I put myself in a garbage bag before I tried to kill myself last month because I wanted my family to be able to easily dispose of me. He tells me he has no
appetite and explains about all the weight loss he has had. I ask if I had a magic wand that could help you, what would you want me to do and he tells me 'help my shoulder pain'. Discuss all of this with his RN who will also update the Hospitalist.
I am concerned for his safety as it relates to discharge but at this time he denies any suicidal plan or intent. He admits he is hopeful someone here can help him.
Impression/Plan: Unspecified depressive disorder, R/O MDD - Continue with Sertraline 25 mg for now, continue to monitor.
--- NOTE | 2023-10-08 11:34 | CM ---
Addendum entered by Mita Snowden 10/08/23 16:06:
Spoke with patients sister Roma and she is in agreement with [facility] for skilled rehab to [facility]
She will try to come visit her brother semaj.
Addendum entered by Mita Snowden 10/08/23 15:31:
TC from [facility] earliest level 2 evaluation can be completed is Saturday10/14/23, if there are any cancellations they will let us know.
Addendum entered by Mita Snowden 10/08/23 14:38:
Level 2 forms sent to [facility].
Await evaluation to be set up by [facility].
[facility] following for skilled to LTC.
Plan: skilled rehab when accepted at a facility after level 2 completed.
Original Note:
Discussion with patient re skilled facilities.
His preference is [facility].
Patient does not plan on returning to his sisters residence at d/c, he would prefer LTC.
Patient is a Level 2 PASRR and forms will be completed and sent to [facility] to day.
Plan: skilled rehab once bed available, and Level 2 PASRR completed.
--- NOTE | 2023-10-08 11:49 | WOUNDNOTE ---
LEFT FOREARM WOUND
[2023-10-08 11:56] LABS: Glucose - Point of Care 292 mg/dl (70-99)
--- NOTE | 2023-10-08 12:05 | WOUNDNOTE ---
[facility] RN NOTE: Reviewed chart and met with patient. Patient was admitted with left forearm wound. Patient states he 'picked off scab' prior to hospitalization and he is unable to state how wound occurred. The wound is full thickness, covered with
yellow and white slough and draining small amount of serous fluid. No odor noted. The periwound is red and indurated. Patient also reports soreness/tenderness at wound site. Hospitalist notified of findings and will review pictures. Patient also
has stage 1 PI of sacrum. Heels intact. Patient demonstrates ability to turn easily in bed and is on a SCM-GL Accumax. He reports improved appetite since admission (BMI low at 17). Reviewed importance of blood sugar control in wound healing with
patient (Hgb A1C 10.4). Recommend follow up at [facility]. Wound care completed as ordered. RN, Feroz updated. Discharge and care plan updated. Will follow as needed.
[2023-10-08] MEDS: ANCEF 5 IV ×2 (12:35→20:52)
[2023-10-08] MEDS: NOVOLOG FLEXPEN-LOW RESISTANCE 3 UNITS SC (12:35)
--- NOTE | 2023-10-08 12:44 | W.PN.HOSP.TC ---
Today's Communication/Plan
-
Start cefazolin
Follow-up cultures
Monitor area of cellulitis
Abdominal ultrasound
Pain control, trial Toradol
Assessment / Plan
Assessment / Plan
HPI: 68 yo man with hx DM, prostate CA, skin cancer, depression with an episode of SI last month (was not brought to the hospital) presented to the ER by family for evaluation of failure to thrive. Patient lives in the basement of a house with his
siblings. He has history of depression and chronic pain on opiate. He has had no appetite and therefore has not been taking his insulin because he doesn't want his sugar to go too low. He was found on floor by siblings and agreed to come to
hospital given pain in right shoulder.
Shoulder X-Ray: Normal.
A/P:
# Failure to Thrive
# severe protein caloric malnutrition
CPK at 42 hence r/o rhabdo
observe off additional gentle IVF
dietary on board
CT CAP ordered for cancer work up, noted liver lesion -
Will check MRI AP for liver lesion (pt has spinal stimulator, awaiting MRI department to check compatibility): No evidence of liver lesion on MRI;
HIV negative, PSA negative
# Chronic bladder incontinence per pt, likely 2/2 previous XRT for prostate cancer
monitor
#Acute on Chronic Bowel incontinence
no sig findings - most likely 2/2 to previous XRT
-f/u NSG outpatient
-BM regimen for constipation
#Sepsis
-2/2 to cellulitis most likely
-start cefazolin
-COVID, FLu f/u
-F/u blood cultures
-no urinary changes
�Can have complete abdominal ultrasound to evaluate biliary ducts although no significant biliary dilation and LFTs within normal limits, nor abdominal pain
#Hyponatremia
-monitor
# Depression
TSH WNL at 0.97
psychiatry on board, rec medical/cancer work up, restarted Zoloft
# Hypokalemia
# Hypophosphatemia
# Likely refeeding syndrome
repleted lytes and lytes normalized
cont carb control diet
# Chronic pain, opiate dependence
change OFFICE BOOKKEEPER norco to Q12 PRN (from q8) given likely contributing to anorexia and FTT
xray shoulder without fracture
lidocaine patch over R shoulder not working; symptoms most likely MSK;
LFTS wnl and MRI without evidence of acute duane
Start Toradol
can trial fentanyl patch if unable to control with toradol
# Neuropathic pain and ambulatory dysfunction
continue OFFICE BOOKKEEPER Pregabalin
PT OT eval rec SNF
# Diabetes
# hypoglycemia
A1C 10.5 %
cover with ISS low
Off further Lantus due to hypoglycemia noted (he received 5 units); restart with 5 lantus and aspart 3 u TID
DVT ppx: Lovenox SQ
DNR - patient is coherent during conversation; denies SI. He appears competent to make this decision stating 'I've had a great life and now I'm old with chronic health conditions.'
Dispo: PT OT [facility]; I believe he is appropriate for SNF at [place]
Total time spent on today's encounter was 52 minutes which included time spent in counseling the patient/family regarding diagnosis and treatment plan as listed above, goals of care, and symptom management. Case was discussed with nursing staff,
specialists, and care coordinators/case management. All labs and imaging personally reviewed by me. Remainder the time spent in detailed review of previous records, lab data, imaging, and other medical provider documentation.
Anticipated Discharge: 24 - 48 hours
Subjective/Interval History
-
Date of Service: October 08, 2023
Complaining of right shoulder.. Spiked temperature 100.9 yesterday night
Objective Data
-
Labs:
Laboratory Results
10/08/23
05:19
WBC 9.2
Hgb 11.3 L
Hct 32.7 L
Plt Count 307
Sodium 133 L
Potassium 4.0
Chloride 101
Carbon Dioxide 24
BUN 14
Creatinine 0.6 L
Glucose 193 H
Calcium 8.6
Total Bilirubin 0.6
AST 17
ALT < 10
Alkaline Phosphatase 92
Vital Signs:
Vital Signs
Temp Pulse Resp BP Pulse Ox
98.1 F 88 18 107/52 98
10/08/23 08:26 10/08/23 08:26 10/08/23 08:26 10/08/23 08:26 10/08/23 08:26
I&O
10/07/23 10/08/23 10/09/23
06:59 06:59 06:59
Intake Total 1560 / 1560 900 / 900
Output Total 900 / 900 700 / 700
Balance 660 / 660 200 / 200
Review of Systems
-
History Source: Patient
All other systems: Not reviewed unless documented
Physical Exam
-
General: Well Developed, No Apparent Distress, Comfortable, Conversant, Appears Chronically Ill and Cachectic; Negative Respiratory Distress
HEENT: Normocephalic, Atraumatic, Nose Appears Normal and Ears Appear Normal; Negative Oxygen
Respiratory: Clear to Auscultation and Non Labored Respirations; Negative Accessory Resp Muscle Use
Cardiac: Regular Rhythm and S1/S2
GI: Soft, Nontender, Nondistended and Normal Bowel Sounds
Skin: Warm, Dry and Other ( left forearm wound, erythema)
Neuro: Awake, Alert and Oriented
Psych: Calm and Intact Judgement/Insight
[2023-10-08] MEDS: TORADOL 30 MG IV (13:36)
[2023-10-08] MEDS: DURAGESIC 25 MCG/HR PATCH 1 PATCH TRANSDERM (16:14)
[2023-10-08 16:17] LABS: Glucose - Point of Care 200 mg/dl (70-99)
[2023-10-08 16:23] VITALS: BP 115/53
[2023-10-08] MEDS: NOVOLOG FLEXPEN 3 UNITS SC (16:55)
[2023-10-08] MEDS: NOVOLOG FLEXPEN-LOW RESISTANCE 2 UNITS SC (16:56)
[2023-10-08] MEDS: LOVENOX 40 MG SC (16:56)
[2023-10-08 17:50] LABS: Urine Albumin Trace (Neg - Trace); Urine Bilirubin 1+ (Negative); Urine Character Clear (Clear); Urine Color Yellow; Urine Glucose 3+ (Negative); Urine Ketone Trace (Negative); Urine Leukocyte Negative (Negative); Urine Nitrite Negative (Negative); Urine Occult Blood Negative (Negative); Urine Specific Gravity 1.015 (<1.030); Urine Urobilinogen 2+ (Neg - 1+); Urine pH 6.5 (5.0-9.0)
[2023-10-08 21:42] LABS: Glucose - Point of Care 271 mg/dl (70-99)
[2023-10-08] MEDS: LANTUS 0.0500000000000000028 UNITS SC (22:26)
[2023-10-08 23:58] VITALS: BP 116/59
[2023-10-09] MEDS: ANCEF 5 IV (03:26)
[2023-10-09 06:00] VITALS: BMI 17.1
[2023-10-09 07:24] LABS: Hematocrit 33.8 % (39.0-52.0); Hemoglobin 11.3 g/dL (13.0-18.0); Mean Corp Hgb Conc. 33.4 g/dL (33.0-37.0); Mean Corpuscular Hgb 27.7 pg (27.0-31.0); Mean Corpuscular Volume 82.8 fL (80.0-94.0); Mean Platelet Volume 9.4 fL (7.4-10.4); Platelet Count 264 10^3/uL (130-400); Red Blood Cell Count 4.08 10^6/uL (4.70-6.10); Red Cell Dist. Width 15.2 % (11.5-14.5)
[2023-10-09 07:52] VITALS: BP 110/57
[2023-10-09 07:56] LABS: Glucose - Point of Care 110 mg/dl (70-99)
[2023-10-09 07:56] LABS: Blood Urea Nitrogen 19 mg/dl (9-20); Calcium 8.6 mg/dl (8.4-10.2); Carbon Dioxide 28 mmol/L (22-30); Chloride 103 mmol/L (98-107); Estimated Creatinine Clearance 78 ml/min; Glucose 113 mg/dl (70-99); Potassium 3.7 mmol/L (3.5-5.1); Sodium 134 mmol/L (135-145); eGFR > 60.00
[2023-10-09] MEDS: LYRICA 150 MG PO ×3 (08:04→21:28)
[2023-10-09] MEDS: ZOLOFT 25 MG PO (08:04)
[2023-10-09] MEDS: NOVOLOG FLEXPEN-LOW RESISTANCE SC (08:05)
[2023-10-09] MEDS: NOVOLOG FLEXPEN 3 UNITS SC ×3 (08:10→18:06)
--- NOTE | 2023-10-09 09:00 | PHA.VAN.IN ---
Assessment
- Assessment
Renal Function: Appears similar to baseline
Concomitant Antimicrobials: cefazolin
AUC Dosing Plan
- Dosing Variables
Dosing Weight (kg): 63.8
Dosing CrCl (ml/min): 103
Vd coefficient (L/kg): 0.7
Utilized IBW for dosing weight and CrCl given BMI < 20
Patient may have enhanced clearance as well given PMH of cancer
- Empiric Dosing
Initial / Loading Dose: 1250mg - administration pending
Maintenance Regimen: Vanc 1000mg Q12H starting at 1800
Estimated AUC (mcg*h/mL): 521
Estimated Peak (mcg*h/mL): 33.9
Estimated Trough (mcg/ml): 12.6
Estimated Half Life (H): 7.7
- Monitoring
No levels ordered at this time: consider levels in next few days
Pharmacokinetics Vancomycin I
- -
Patient Age: 68
Patient Sex: Male
Vancomycin Day #: 1
Indication: Bacteremia
Requesting Provider: Dr. Zaman
Pertinent Antimicrobial Allergies:
NKDA
Height / Weight:
Height 5 ft 6 in
Actual Weight 48.109 kg
IBW in k.8
Pertinent Past Medical History: BMI ~17, DM, prostate cancer
- Vital Signs / Lab Results
Temp Pulse Resp BP Pulse Ox
99.2 F 90 18 110/57 99
10/09/23 07:52 10/09/23 07:52 10/09/23 07:52 10/09/23 07:52 10/09/23 07:52
Lab Results - Hematology
10/08/23 10/09/23
05:19 07:06
WBC 9.2 5.0
Lab Results - Chemistry
10/07/23 10/08/23 10/09/23
05:40 05:19 07:06
BUN 13 14 19
Creatinine 0.6 L 0.6 L 0.6 L
Estimated Creat Clear 78 78 78
Albumin 3.2 L
Lab Results - Urine
10/08/23
17:15
Urine Nitrite (Reflex) Negative
Leukocyte Esterase Rfl Negative
Microbiology Results
10/08/23 08:37 Blood Culture - Preliminary
Blood/Venous Staph aureus MRSA
Gram Stain - Preliminary
10/08/23 08:21 Blood Culture - Preliminary
Blood/Venous Positive culture in progress
Gram Stain - Preliminary
10/08/23 08:43 Influenza Types A & B (LEANA) - Final
Nasal Swab Negative for Influenza A & B, NAAT
Negative results must be combined with clinical observations
and patient history.
Nucleic Acid Amplification test (NAAT)performed on the
Ech[employer] platform.
--- NOTE | 2023-10-09 09:25 | VATNOTE ---
L arm phlebitis still red, and painful to touch per pt. No edema noted. Will continue to monitor.
[2023-10-09] MEDS: VANCOCIN 275 MG IV (09:40)
--- NOTE | 2023-10-09 09:40 | PN.DE.MGMTRT ---
Insulin Management
- -
10/09/2023 Diabetes Management Consult
Patient admitted 10/01 with failure to thrive, malnourished, breathing problem. PMH chronic pain, diabetes, depression, prostate CA. Patient states he has had diabetes at least 6 years, did see endocrine in [place] but patient knew more than
provider. He was originally given metformin but he became very ill. Started on insulin Regular and NPH. Patient states about 6 weeks ago he could not eat due to pain so he stopped his insulin. Patient states his blood sugar drops rapidly, he
could be 300 then 50 in 10 minutes.
A1C on admission 10.5%, cr .6, eGFR >60.
Patient received 5 units lantus @ hs last evening, fasting glucose this AM 110. Will make no change to lantus.
Pre meal novolog ordered 3 units with low corrective. Will make no changes to current novolog.
Patient states he has a working glucose monitor.
Diabetes History
- -
Type of Diabetes: 2 requiring insulin
Pre-Admission Diabetes Regimen
10/09/23
07:06
Creatinine 0.6 L
Lab Results
Hemoglobin A1c 10.5 % (4.0-5.6) H 10/03/23 06:09
Insulin Pump Settings
IP Diabetes Regimen
10/08/23 10/08/23 10/08/23
11:51 16:14 21:40
Glucose
POC Glucose 292 H 200 H 271 H
10/09/23 10/09/23
07:06 07:54
Glucose 113 H
POC Glucose 110 H
Patient Education
[2023-10-09] MEDS: NORCO 5/325 1 TABLET PO ×2 (09:43→22:13)
--- NOTE | 2023-10-09 12:13 | W.PN.HOSP.TC ---
Today's Communication/Plan
-
vanc
id consulted
f/u final cultures, repeat blood cultures
echo
wound care
Assessment / Plan
Assessment / Plan
HPI: 68 yo man with hx DM, prostate CA, skin cancer, depression with an episode of SI last month (was not brought to the hospital) presented to the ER by family for evaluation of failure to thrive. Patient lives in the basement of a house with his
siblings. He has history of depression and chronic pain on opiate. He has had no appetite and therefore has not been taking his insulin because he doesn't want his sugar to go too low. He was found on floor by siblings and agreed to come to
hospital given pain in right shoulder.
Shoulder X-Ray: Normal.
A/P:
# Failure to Thrive
# severe protein caloric malnutrition
CPK at 42 hence r/o rhabdo
observe off additional gentle IVF
dietary on board
CT CAP ordered for cancer work up, noted liver lesion -
MRI AP for liver lesion (pt has spinal stimulator, awaiting MRI department to check compatibility): No evidence of liver lesion on MRI;
HIV negative, PSA negative
# Chronic bladder incontinence per pt, likely 2/2 previous XRT for prostate cancer
monitor
#Acute on Chronic Bowel incontinence
no sig findings - most likely 2/2 to previous XRT
-f/u NSG outpatient
-BM regimen for constipation
#Sepsis
#Bacteremia, MRSA
#Cellulitis
-unclear source although does appear to have cellulitics of left forearm - improved erythema from yesterday
-Switch to Vanco
-F/u repeat blood cultures, f/u final cultures
-ID consulted
-ECHO
#Hyponatremia
-monitor
# Depression
TSH WNL at 0.97
psychiatry on board, rec medical/cancer work up, restarted Zoloft
# Hypokalemia
# Hypophosphatemia
# Likely refeeding syndrome
repleted lytes and lytes normalized
cont carb control diet
# Chronic pain, opiate dependence
change GUSSET EDGER norco to Q12 PRN (from q8) given likely contributing to anorexia and FTT
xray shoulder without fracture
lidocaine patch over R shoulder not working; symptoms most likely MSK;
LFTS wnl and MRI without evidence of acute duane
Start Toradol
can trial fentanyl patch if unable to control with toradol
# Neuropathic pain and ambulatory dysfunction
continue GUSSET EDGER Pregabalin
PT OT eval [facility]
# Diabetes
# hypoglycemia
A1C 10.5 %
cover with ISS low
Off further Lantus due to hypoglycemia noted (he received 5 units); restart with 5 lantus and aspart 3 u TID
-DM VERIFICATION ENGINEER management
DVT ppx: Lovenox SQ
DNR - patient is coherent during conversation; denies SI. He appears competent to make this decision stating 'I've had a great life and now I'm old with chronic health conditions.'
Dispo: PT OT [facility]; I believe he is appropriate for SNF at [place]
Total time spent on today's encounter was 53 minutes which included time spent in counseling the patient/family regarding diagnosis and treatment plan as listed above, goals of care, and symptom management. Case was discussed with nursing staff,
specialists, and care coordinators/case management. All labs and imaging personally reviewed by me. Remainder the time spent in detailed review of previous records, lab data, imaging, and other medical provider documentation.
Anticipated Discharge: > 48 hours
Subjective/Interval History
-
Date of Service: October 09, 2023
No further fevers although blood cultures positive for MRSA
Objective Data
-
Labs:
Laboratory Results
10/09/23
07:06
WBC 5.0
Hgb 11.3 L
Hct 33.8 L
Plt Count 264
Sodium 134 L
Potassium 3.7
Chloride 103
Carbon Dioxide 28
BUN 19
Creatinine 0.6 L
Glucose 113 H
Calcium 8.6
Vital Signs:
Vital Signs
Temp Pulse Resp BP Pulse Ox
99.2 F 90 18 110/57 99
10/09/23 07:52 10/09/23 07:52 10/09/23 07:52 10/09/23 07:52 10/09/23 07:52
I&O
10/08/23 10/09/23 10/10/23
06:59 06:59 06:59
Intake Total 900 / 900 240 / 240
Output Total 700 / 700 600 / 600
Balance 200 / 200 -360 / -360
Review of Systems
-
History Source: Patient
All other systems: Not reviewed unless documented
Physical Exam
-
General: Well Developed, No Apparent Distress, Comfortable, Conversant, Appears Chronically Ill and Cachectic; Negative Respiratory Distress
HEENT: Normocephalic, Atraumatic, Nose Appears Normal and Ears Appear Normal; Negative Oxygen
Respiratory: Clear to Auscultation and Non Labored Respirations; Negative Accessory Resp Muscle Use
Cardiac: Regular Rhythm and S1/S2
GI: Soft, Nontender, Nondistended and Normal Bowel Sounds
Skin: Warm, Dry and Other ( left forearm wound, erythema)
Neuro: Awake, Alert and Oriented
Psych: Calm and Intact Judgement/Insight
Data Reviewed
-
CT Scan: Report Reviewed by me and Discussed with Patient
Ultrasound: Report Reviewed by me
MRI: Report Reviewed by me
Labs: Labs Reviewed by me
[2023-10-09 12:29] LABS: Glucose - Point of Care 169 mg/dl (70-99)
[2023-10-09] MEDS: NOVOLOG FLEXPEN-LOW RESISTANCE 1 UNITS SC ×2 (12:47→18:06)
--- NOTE | 2023-10-09 12:52 | PN.CDI ---
CDI
- -
CDI:
Physician Documentation Request
Admit Date: 10/08/23 12:00
Dear Doctor Junie,
Please review the following and provide your response in the progress notes.
Clinical Indicators:
- 10/07 Wound note indicates new Stage 1 sacrum pressure injury
Physician documentation of the type and location of wounds is required for compliant documentation. Based on the above clinical findings and your assessment, please provide the following in your progress note:
1. Location of the ulcer/wound, including laterality.
2. Type (etiology) of ulcer/wound:
- Diabetic ulcer
- Arterial (ischemic) ulcer
- Traumatic wound
- Venous stasis ulcer
- Pressure (decubitus) ulcer
- Non-healing surgical wound
- Other
- Unable to determine
3. For a non-pressure ulcer, please indicate the depth/severity:
- Limited to the breakdown of skin
- With fat layer exposed
- With necrosis of muscle
- With necrosis of bone
- Other
- Unable to determine
4. If a pressure ulcer, please also include the stage* of the ulcer:
- Stage 1 - Skin intact, non-blanchable redness
- Stage 2 - Partial thickness loss of dermis, includes intact or open blister
- Stage 3 - Full thickness tissue not including bone, tendon or muscle
- Stage 4 - Full thickness tissue loss, including exposed bone, tendon or muscle
- Unstageable - Full thickness loss in which the base of the ulcer is covered by slough (yellow, tse, steven, green or brown) and/or eschar (tse, brown or black) in the wound bed.
- Unable to determine
Use of terms such as suspected, likely, concern for, or probable (associated with a specific diagnosis that is being evaluated, monitored, or treated as if it exists) are acceptable and can be coded in the inpatient setting, when documented at the
time of discharge.
Thank you,
Randa Garcia RN
CDI Specialist
Please use your independent medical judgment in providing your response.
*Source: National Pressure Ulcer Advisory Panel (NPUAP)
--- NOTE | 2023-10-09 13:08 | CON.ID ---
Consultation
-
Date/Time Consultation Requested: 10/09/23 8:55
Date/Time Consultation Performed: 10/09/23 13:08
Requesting Provider: Dr Zaman
Performing Provider: Dr Kingsley
Reason for Consultation: mrsa bacteremia
Chief Complaint / Past History
Chief Complaint
found down
History of Present Illness
Mr Minaya is a 68 year old male with history of DM2, skin cancer, chronic pain on opiates who was found on the floor. Family have observed that he has been noncompliant with medications for about 1 month. Also about 1 month ago he overdosed on
opiates and wrapped saran wrap around his body. They did not seek medical treatment for this episode. Psychiatry has been consulted. On arrival he complained of pain the in right shoulder. Reports anorexia and not eating or taking insulin
(because he isnt eating). Denied fever or chills on arrival. Had a skin tear on the L arm (present on arrival) that was 'pussy' at home, now cleaned, bandaged with some mild surrounding cellulitis. Never had trouble with the spinal stimulator
becoming infected. No other wounds at this time. No other recent skin infections
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
attributed his loose teeth to his dentist blaming his dentures. We did discuss the connection of dental disease and uncontrolled DM2.
Since arrival here a single fever of 100.9 is recorded, BP hypertensive to stable, wbc 5.0, hgb 11.3, cr 0.6, HIV screen was negative, two sets of blood cultures 14 minutes apart with mrsa,lumbar spine MRI without contrast: spinal stimulator in
place, abd MRI: severe constipation, otherwise unremarkable, thoracic and lumbar spine xrays: spinal stimulator - leads are appropriate, CT chest, abd, pelvis with IV contrast: Questionable subcentimeter low-attenuation caudal right lobe hepatic
low-attenuation lesion, indeterminate. Consider MRI for more complete evaluation. right shoulder xray: normal
Past History
Additional Past Medical History:
prostate cancer
renal stones
Additional Past Surgical History:
spinal stimulator
Allergy History:
No Known Allergies Allergy (Verified 10/02/23 13:54)
Medications Reviewed: Yes
Social History
Tobacco: Former Smoker
Alcohol: Former
Drug: None
Family History
Family History: Not Pertinent
Review of Systems
Review of Systems
General: Negative Fever or Chills
All systems: All other systems were reviewed and were negative
Vital Signs
Temp Pulse Resp BP Pulse Ox
99.2 F 90 18 110/57 99
10/09/23 07:52 10/09/23 07:52 10/09/23 07:52 10/09/23 07:52 10/09/23 07:52
Physical Exam
Physical Exam
Constitutional: No Acute Distress
Cardiovascular: Regular Rate and S1/S2; Negative Murmur or Rub
Pulmonary: Clear and Symmetric; Negative Wheezes, Rales or Rhonchi
Gastrointestinal: Soft, Non Tender, Non Distended and Normal Bowel Sounds
Extremities: Other (large skin tear on the L forearm with surrounding cellulitis - subcutaneous tissue visible in the wound )
Skin: Warm and Dry; Negative Rash or Jaundice
Lab / Diagnostic Study Results
10/09/23 07:06
10/09/23 07:06
Abs Immat Gran (auto) 0.1 10^3/uL (0-0.05) H 10/02/23 14:04
Absolute Neuts (auto) 5.7 10^3/uL (1.4-6.5) 10/02/23 14:04
Absolute Lymphs (auto) 1.8 10^3/uL (1.2-3.4) 10/02/23 14:04
Absolute Monos (auto) 0.5 10^3/uL (0.1-0.6) 10/02/23 14:04
Absolute Basos (auto) 0.1 10^3/uL (0-0.2) 10/02/23 14:04
Immature Gran % 0.9 % (0-0.5) H 10/02/23 14:04
Neutrophils % 69.2 % (42.2-75.2) 10/02/23 14:04
Lymphocytes % 21.9 % (20.5-51.1) 10/02/23 14:04
Monocytes % 6.6 % (1.7-9.3) 10/02/23 14:04
Eosinophils % 0.7 % (0-6) 10/02/23 14:04
Basophils % 0.7 % (0-2) 10/02/23 14:04
Microbiology Results
Micro:
10/08/23 08:21 Blood Culture - Preliminary
Blood/Venous Staph aureus MRSA
Gram Stain - Preliminary
10/08/23 08:37 Blood Culture - Preliminary
Blood/Venous Staph aureus MRSA
Gram Stain - Final
10/09/23 09:06 Blood Culture - Pending
Blood/Venous
10/08/23 08:43 Influenza Types A & B (LEANA) - Final
Nasal Swab Negative for Influenza A & B, NAAT
Negative results must be combined with clinical observations
and patient history.
Nucleic Acid Amplification test (NAAT)performed on the
[employer] platform.
Assessment / Plan
MRSA Bacteremia
Cellulitis L forearm and Wound Infection
DM2
Cachexia
- repeat blood cultures x2
- then repeat daily until persistently clear
- in my opinion best to let the infected wound heal by secondary intention - he will likely have a scar - he understands and reports no concern about that 'you think Id care about a scar? look at me!'
- tte is ordered - i agree
- continue vancomycin
- imaging of the spinal stimulator without concern for collection; stimulator is visible on the external exam and also without signs of infection at this time
- wound care team will manage the wound care
- follow clinically
Care Review
Plan reviewed with: Physician (Dr Zaman)
--- NOTE | 2023-10-09 13:28 | W.PN.UPDATE ---
Update Note
Progress Note Update
patient seen chart reviewed. spoke with nursing. patient w c/o pain in shoulder better with fentanyl but certainly preoccupying him at this point. 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 we
discussed many of this issues...diabetes and pain of neuropathy....incontinence...his fears of having metastatic cancer (the latter does NOT seem to be the case reported to him that mri of the abdomen not showing evidence of ca...there are two cysts
in kidney) the mri does show colon which is distended with feces. the latter discussed w dr sosa. while patient has had a bowel movement two days ago it does seem there is a regimen needed to keep bowels moving and prevent worsening
constipation given opiate use. the patient reports little confidence in the out patient treatments he has received thus far and wishes to see if he can get a new integration manager. will make some recommendations to him in the near future. ms corral
note appreciated. discussed w patient increasing zoloft to 50 mg today. will continue to followup offering support.
--- NOTE | 2023-10-09 14:10 | CM ---
Per Attending's request, sent prescription for antibiotics to [facility] @ [facility] to obtain cost information
[2023-10-09 16:00] VITALS: BP 122/67
[2023-10-09 16:35] VITALS: BP 122/67; PULSE 87
[2023-10-09 16:37] VITALS: BP 122/67; PULSE 87
[2023-10-09 18:01] LABS: Glucose - Point of Care 169 mg/dl (70-99)
[2023-10-09] MEDS: LOVENOX 40 MG SC (18:08)
[2023-10-09] MEDS: VANCOCIN 200 IV (18:08)
[2023-10-09 18:45] VITALS: BP 125/52
[2023-10-09 21:24] LABS: Glucose - Point of Care 152 mg/dl (70-99)
[2023-10-09] MEDS: LANTUS 0.0500000000000000028 UNITS SC (21:27)
[2023-10-09 23:33] VITALS: BP 134/68
--- NOTE | 2023-10-09 23:38 | W.PN.UPDATE ---
Update Note
Progress Note Update
Cross Coverage Update:
NPO after midnight for further evaluation suspected Endocarditis.
Cardiology Consult requested.
[2023-10-10 04:58] LABS: Hematocrit 33.8 % (39.0-52.0); Mean Corp Hgb Conc. 32.5 g/dL (33.0-37.0); Mean Corpuscular Hgb 27.2 pg (27.0-31.0); Mean Corpuscular Volume 83.7 fL (80.0-94.0); Mean Platelet Volume 9.5 fL (7.4-10.4); Platelet Count 271 10^3/uL (130-400); Red Blood Cell Count 4.04 10^6/uL (4.70-6.10); Red Cell Dist. Width 15.4 % (11.5-14.5); White Blood Cell Count 5.7 10^3/uL (4.8-10.8)
[2023-10-10 05:26] LABS: ALT (SGPT) < 10 U/L (0-50); AST (SGOT) 20 U/L (17-59); Alkaline Phosphatase 89 U/L (38-126); Blood Urea Nitrogen 18 mg/dl (9-20); Calcium 8.6 mg/dl (8.4-10.2); Carbon Dioxide 25 mmol/L (22-30); Chloride 107 mmol/L (98-107); Estimated Creatinine Clearance 78 ml/min; Glucose 96 mg/dl (70-99); Potassium 3.6 mmol/L (3.5-5.1); Sodium 137 mmol/L (135-145); Total Bilirubin 0.3 mg/dl (0.2-1.3); Total Protein 5.5 g/dl (6.3-8.2); eGFR > 60.00
[2023-10-10 05:35] VITALS: BMI 17.1
[2023-10-10] MEDS: VANCOCIN 200 IV (05:50)
[2023-10-10 06:00] VITALS: BMI 17.1
[2023-10-10 07:05] VITALS: BP 132/65
[2023-10-10 07:19] LABS: Glucose - Point of Care 142 mg/dl (70-99)
--- NOTE | 2023-10-10 07:50 | PN.DE.MGMTRT ---
Insulin Management
- -
10/10/2023 Diabetes Management Consult Follow up
Patient admitted 10/01 with failure to thrive, malnourished, breathing problem. PMH chronic pain, diabetes, depression, prostate CA. Patient states he has had diabetes at least 6 years, did see endocrine in [place] but patient knew more than
provider. He was originally given metformin but he became very ill. Started on insulin Regular and NPH. Patient states about 6 weeks ago he could not eat due to pain so he stopped his insulin. Patient states his blood sugar drops rapidly, he
could be 300 then 50 in 10 minutes.
A1C on admission 10.5%, cr .6, eGFR >60.
Patient is awake alert and oriented, NPO for procedure.
Patient received 5 units lantus @ hs last evening, fasting glucose this AM 142. Will make no change to lantus.
Pre meal novolog ordered 3 units with low corrective. Glucose range 110 to 169. Will increase AC novolog to 4 units.
Patient states he has a working glucose monitor.
Diabetes History
- -
Type of Diabetes: 2 requiring insulin
Pre-Admission Diabetes Regimen
10/09/23 10/10/23
07:06 04:24
Creatinine 0.6 L 0.6 L
Lab Results
Hemoglobin A1c 10.5 % (4.0-5.6) H 10/03/23 06:09
Insulin Pump Settings
IP Diabetes Regimen
10/09/23 10/09/23 10/09/23
07:06 07:54 12:28
Glucose 113 H
POC Glucose 110 H 169 H
10/09/23 10/09/23 10/10/23
17:59 21:17 04:24
Glucose 96
POC Glucose 169 H 152 H
10/10/23
07:16
Glucose
POC Glucose 142 H
Meal type: Dinner
Meal type: Breakfast
Amount consumed: 100%
Amount consumed: 100%
Patient Education
[2023-10-10] MEDS: NOVOLOG FLEXPEN-LOW RESISTANCE SC ×2 (08:03→11:48)
[2023-10-10] MEDS: LYRICA 150 MG PO ×3 (08:07→22:12)
[2023-10-10] MEDS: MIRALAX 17 GRAMS PO (08:10)
[2023-10-10] MEDS: ZOLOFT 50 MG PO (08:12)
--- NOTE | 2023-10-10 08:12 | CON.CAR ---
Consultation
Consultation Request
Date/Time Consultation Requested: 10/09/23, 7pm
Date/Time Consultation Performed: 10/10/23, 745am
Requesting Provider: North
Performing Provider: Srini
Reason for Consultation: bacteremia, possible aortic valve vegetation
Medical History
-
Chief Complaint: failure to thrive
History of Present Illness:
68 yo male with PMH of DM, chronic pain, opiate dependence, depression admitted with failure to thrive. We are consulted due to MRSA bacteremia and abnormal aortic valve on TTE.
He offers no cardiac complaints today. He is weak overall.
Past Medical History
Past Medical History: IDDM and Psychiatric (depression, opiate dependence)
Past Surgical History: Other (spinal stimulator)
Social History
Tobacco: Former Smoker (quit 20 yrs ago)
Family History
Family History: CAD (parents)
Allergies / Home Medications
Allergy/AdvReac Type Severity Reaction Status Date / Time
No Known Allergies Allergy Verified 10/02/23 13:54
�Medication �Instructions �Recorded �Confirmed �Type
hydrocodone 5 mg-acetaminophen 325 1 tab PO Q8H PRN moderate pain 10/02/23 10/02/23 History
mg tablet
losartan 50 mg-hydrochlorothiazide 1 tab PO DAILY Blood Pressure 10/02/23 10/02/23 History
12.5 mg tablet
pregabalin 150 mg capsule 150 mg PO Q8H nerve/muscle pain 10/02/23 10/02/23 History
sertraline 25 mg tablet 25 mg PO DAILY depression/anxiety 10/02/23 10/02/23 History
sertraline 50 mg tablet 50 mg PO DAILY depression/anxiety 10/02/23 10/02/23 History
tizanidine 4 mg tablet 4 mg PO Q8H PRN muscle spasms 10/02/23 10/02/23 History
Review of Systems
-
History Source: Patient
All other systems: Negative unless noted
Constitutional: Other (chronic pain)
EENT: Other (multiple loose teeth)
Abdomen/GI: Other (incontinence)
Musculoskeletal: Muscle Pain
Skin: Rash
Neurological: Weakness
Physical Exam
Vital Signs
Temp Pulse Resp BP Pulse Ox
98.1 F 78 14 132/65 99
10/10/23 07:05 10/10/23 07:05 10/10/23 07:05 10/10/23 07:05 10/10/23 07:05
Lab Results
10/10/23 04:24
10/10/23 04:24
Physical Exam
General: Other (cachexia)
HEENT: Normocephalic and Anicteric
Respiratory: Clear and Non Labored Respirations
Cardiac: S1/S2 (normal), Regular Rhythm, Murmur (I/ systolic at RUSB), Peripheral Edema (none) and JVD (none)
GI: Soft, Non Tender and Non Distended
Musculoskeletal: No Clubbing, No Cyanosis and No Edema
Skin: Warm and Dry
Neuro: AO x 3
Psych: Calm
Impression / Plan
-
68 yo male with PMH of DM, chronic pain, opiate dependence, depression admitted with failure to thrive. We are consulted due to MRSA bacteremia and abnormal aortic valve on TTE.
# MRSA bacteremia with abnormal aortic valve: evaluation for endocarditis
-Bcx + MRSA x2 on 10/07; no growth yet from 10/08 and 10/09
-source may be left arm cellulitis
-ID consulted and on IV vanco
-TTE 10/08: EF 55%, Calcified aortic valve. Aortic sclerosis without stenosis. No aortic regurgitation is seen. There is a 7 mm mobile echodensity that may be associated with the aortic annulus between the RCC and NCC (image 24). It could be a
calcified leaflet edge, but cannot rule out vegetation.
-we cannot due CHRISTA at this time due to multiple loose teeth: high risk for tooth dislodgement and aspiration during CHRISTA
-TTE suggests possible endocarditis without surgical indication at this time
-EKG and tele
-discussed with team
-will plan to treat medically with IV Abx
-will repeat TTE in 2 weeks
-can decide on outpatient CHRISTA based on TTE results and timing of dental work
Data Reviewed
-
EKG: Tracing Personally Visualized and interpreted (EKG 10/02/23: NSR)
Labs: Labs Reviewed by me (Bcx 10/07: +MRSA x2)
--- NOTE | 2023-10-10 08:19 | PHA.VAN.FU ---
Vancomycin Assessment / Plan
- Assessment
Renal Function: Stable
WBC's are: WNL
- Dosing Plan
Continue: Vanc 1000mg Q12H
- Monitoring Plan
Peak Level: 10/09 20:30
Trough Level: 10/10 05:30
Monitoring Comments: levels to be drawn after 3rd maintenance dose
- Follow Up
Pharmacy will continue to follow.
Vancomycin Follow UP
- -
Patient Age: 68
Patient Sex: Male
Vancomycin Day #: 2
Indication: Bacteremia
Requesting Provider: Dr. Zaman
Pertinent Antimicrobial Allergies:
NKDA
Height / Weight:
Height 5 ft 6 in
Actual Weight 47.99 kg
IBW in k.8
Pertinent Past Medical History: BMI ~17, DM, prostate cancer
- Vital Signs / Lab Results
Temp Pulse Resp BP Pulse Ox
98.1 F 78 14 132/65 99
10/10/23 07:05 10/10/23 07:05 10/10/23 07:05 10/10/23 07:05 10/10/23 07:05
Lab Results - Hematology
10/08/23 10/09/23 10/10/23
05:19 07:06 04:24
WBC 9.2 5.0 5.7
Lab Results - Chemistry
10/08/23 10/09/23 10/10/23
05:19 07:06 04:24
BUN 14 19 18
Creatinine 0.6 L 0.6 L 0.6 L
Estimated Creat Clear 78 78 78
Albumin 3.2 L 3.0 L
Microbiology Results
10/08/23 08:37 Blood Culture - Preliminary
Blood/Venous Staph aureus MRSA
Gram Stain - Final
10/08/23 08:21 Blood Culture - Preliminary
Blood/Venous Staph aureus MRSA
Gram Stain - Preliminary
10/08/23 08:43 Influenza Types A & B (LEANA) - Final
Nasal Swab Negative for Influenza A & B, NAAT
Negative results must be combined with clinical observations
and patient history.
Nucleic Acid Amplification test (NAAT)performed on the
[employer] platform.
[2023-10-10] MEDS: NORCO 5/325 1 TABLET PO ×2 (10:46→22:48)
[2023-10-10] MEDS: NOVOLOG FLEXPEN SC ×2 (10:53→11:17)
--- NOTE | 2023-10-10 11:18 | W.PN.UPDATE ---
Update Note
Progress Note Update
patient seen chart reviewed. discussed with nursing and with dr sosa. dr sosa present for part of my meeting with mr parra. the dx of bacterial endocarditis was explained to him as well as its ramifications and treatment. the treatment is
complicated by very poor dentition and may require dental consult eg before lorenza can be done. patient did seem to understand the issues invovled. psychiatrically we focused on the psychological impact of his illnesses. at admission he seemed to
have given up on a life feeling overwhelmed by his medical illnesses and his conviction that he had metastatic cancer . he is trying to be hopeful that resolution of the infection will ultimately enhance his life and enable him to have the will to
go on. mr parra gets frightened by the sense that he is following in t he footsteps of his mother who was always very very ill. 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 we did increase zoloft to 50 mg but he needs a lot of psychological support as well.
will continue to follow
[2023-10-10 11:34] LABS: Glucose - Point of Care 104 mg/dl (70-99)
[2023-10-10] MEDS: NOVOLOG FLEXPEN 4 UNITS SC ×2 (11:50→17:00)
--- NOTE | 2023-10-10 13:11 | W.PN.HOSP.TC ---
Addendum entered and electronically signed by Rashawn Zaman MD 10/10/23 15:47:
Addendum: Cannot rule in Endocarditis at this time;
Stage 1 sacrum pressure injury
Original Note:
Today's Communication/Plan
-
vanc
repeat blood cultures
Assessment / Plan
Assessment / Plan
HPI: 68 yo man with hx DM, prostate CA, skin cancer, depression with an episode of SI last month (was not brought to the hospital) presented to the ER by family for evaluation of failure to thrive. Patient lives in the basement of a house with his
siblings. He has history of depression and chronic pain on opiate. He has had no appetite and therefore has not been taking his insulin because he doesn't want his sugar to go too low. He was found on floor by siblings and agreed to come to
hospital given pain in right shoulder.
Shoulder X-Ray: Normal.
A/P:
# Failure to Thrive
# severe protein caloric malnutrition
� Possibly secondary to endocarditis/bacteremia/sepsis
CPK at 42 hence r/o rhabdo
observe off additional gentle IVF
dietary on board
CT CAP ordered for cancer work up, noted liver lesion -
MRI AP for liver lesion (pt has spinal stimulator, awaiting MRI department to check compatibility): No evidence of liver lesion on MRI;
HIV negative, PSA negative
# Chronic bladder incontinence per pt, likely 2/2 previous XRT for prostate cancer
monitor
#Acute on Chronic Bowel incontinence
no sig findings - most likely 2/2 to previous XRT
-f/u NSG outpatient
-BM regimen for constipation
#Sepsis
#Bacteremia, MRSA
#Cellulitis
#Endocarditis
-unclear source although does appear to have cellulitis of left forearm - improved erythema from yesterday
-Switch to Vanco
-F/u repeat blood cultures, f/u final cultures for clearance
-ID consulted
-ECHO�7 mm mobile echodensity, possibly endocarditis. Cannot perform CHRISTA due to multiple loose teeth. Plan is to repeat TTE in 2 weeks. Continue medical treatment with IV antibiotics. Will decide on outpatient CHRISTA after clearance from dental
based on TTE results.
#Hyponatremia
-monitor
�Resolved
# Depression
TSH WNL at 0.97
psychiatry on board, rec medical/cancer work up, restarted Zoloft
# Hypokalemia
# Hypophosphatemia
# Likely refeeding syndrome
repleted lytes and lytes normalized
cont carb control diet
# Chronic pain, opiate dependence
change CLAIMS CONFIGURATION ANALYST norco to Q12 PRN (from q8) given likely contributing to anorexia and FTT
xray shoulder without fracture
lidocaine patch over R shoulder not working; symptoms most likely MSK;
LFTS wnl and MRI without evidence of acute duane
Start Toradol
can trial fentanyl patch
# Neuropathic pain and ambulatory dysfunction
continue CLAIMS CONFIGURATION ANALYST Pregabalin
PT OT eval [facility]
# Diabetes
# hypoglycemia
A1C 10.5 %
cover with ISS low
Off further Lantus due to hypoglycemia noted (he received 5 units); restart with 5 lantus and aspart 4 u TID
-DM BARREL REPAIRER management
DVT ppx: Lovenox SQ
DNR - patient is coherent during conversation; denies SI. He appears competent to make this decision stating 'I've had a great life and now I'm old with chronic health conditions.'
Dispo: PT OT [facility]; I believe he is appropriate for SNF [place]
Total time spent on today's encounter was 51 minutes which included time spent in counseling the patient/family regarding diagnosis and treatment plan as listed above, goals of care, and symptom management. Case was discussed with nursing staff,
specialists, and care coordinators/case management. All labs and imaging personally reviewed by me. Remainder the time spent in detailed review of previous records, lab data, imaging, and other medical provider documentation.
Anticipated Discharge: > 48 hours
Subjective/Interval History
-
Date of Service: October 10, 2023
Patient with poor dentition, hold off on CHRISTA as needed outpatient; feels somewhat better today
Objective Data
-
Labs:
Laboratory Results
10/10/23
04:24
WBC 5.7
Hgb 11.0 L
Hct 33.8 L
Plt Count 271
Sodium 137
Potassium 3.6
Chloride 107
Carbon Dioxide 25
BUN 18
Creatinine 0.6 L
Glucose 96
Calcium 8.6
Total Bilirubin 0.3
AST 20
ALT < 10
Alkaline Phosphatase 89
Vital Signs:
Vital Signs
Temp Pulse Resp BP Pulse Ox
98.1 F 78 14 132/65 99
10/10/23 07:05 10/10/23 07:05 10/10/23 07:05 10/10/23 07:05 10/10/23 07:05
I&O
10/09/23 10/10/23 10/11/23
06:59 06:59 06:59
Intake Total 240 / 240 960 / 960
Output Total 600 / 600 550 / 550
Balance -360 / -360 410 / 410
Review of Systems
-
History Source: Patient
All other systems: Not reviewed unless documented
Physical Exam
-
General: Well Developed, No Apparent Distress, Comfortable, Conversant, Appears Chronically Ill and Cachectic; Negative Respiratory Distress
HEENT: Normocephalic, Atraumatic, Nose Appears Normal and Ears Appear Normal; Negative Oxygen
Respiratory: Clear to Auscultation and Non Labored Respirations; Negative Accessory Resp Muscle Use
Cardiac: Regular Rhythm and S1/S2
GI: Soft, Nontender, Nondistended and Normal Bowel Sounds
Skin: Warm, Dry and Other ( left forearm wound, erythema)
Neuro: Awake, Alert and Oriented
Psych: Calm and Intact Judgement/Insight
Data Reviewed
-
CT Scan: Report Reviewed by me and Discussed with Patient
Ultrasound: Report Reviewed by me
MRI: Report Reviewed by me
Labs: Labs Reviewed by me
--- NOTE | 2023-10-10 14:01 | CM ---
IV/AB. Accepted at [facility]. Triggered PASRR level II. Level II review requested @ [facility]. Documents previously forwarded. Awaiting response and determination.
--- NOTE | 2023-10-10 14:13 | W.PN.ID1 ---
Date of Service
Date of Service: October 10, 2023
Today's Communication
- tte not revealing, agree that with very loose teeth there are real risks of CHRISTA
- outpatient follow up with [facility] - likely needs a full mouth extraction and dentures
- repeat TTE in two weeks outpatinet
- vanc ALE 2, switched to daptomycin, cost acceptable to [facility]
- duration of antibiotic therapy not yet finalized - hopefully two weeks if blood cultures remain negative tomorrow
Assessment / Plan
MRSA Bacteremia
Cellulitis L forearm and Wound Infection
DM2
Cachexia
- repeat blood cultures x2 no growth to date
- then repeat daily until persistently clear
- in my opinion best to let the infected wound heal by secondary intention
- tte not revealing, agree that with very loose teeth there are real risks of CHRISTA
- outpatient follow up with OMFS - likely needs a full mouth extraction and dentures
- repeat TTE in two weeks outpatinet
- vanc ALE 2, switched to daptomycin, cost acceptable to SNF
- duration of antibiotic therapy not yet finalized - hopefully two weeks if blood cultures remain negative tomorrow
- follow clinically
Chief Complaint
-: Bacteremia and Other (cellulitis)
Subjective / Review of Systems
afebrile
bp stable
cellulitis around the wound improving
repeat blood cultures no growth to date
without leukocytosis
cr stable
'my emotions are all over the place today'
no tenderness over the device
Vital Signs / Physical Exam
Vital Signs
Vital Signs
Temp Pulse Resp BP Pulse Ox
98.1 F 78 14 132/65 99
10/10/23 07:05 10/10/23 07:05 10/10/23 07:05 10/10/23 07:05 10/10/23 07:05
Physical Exam
Constitutional: No Acute Distress
Cardiovascular: Regular Rate and S1/S2; Negative Murmur or Rub
Pulmonary: Clear and Symmetric; Negative Wheezes or Rales
Gastrointestinal: Soft, Non Tender, Non Distended and Normal Bowel Sounds
Skin: Warm, Dry and Other (spinal stimulator no erythema, warmth or tenderness); Negative Rash or Jaundice
Wound: Other (wound with improving erythema and cellulitis around the wound; also with superfical abrasion over the sacrum - already offloading -no erythema, warmth, tenderness or drainage)
Psychological: Calm
Objective Data
Lab Data
Lab Results
10/10/23 04:24
10/10/23 04:24
Estimated Creat Clear 78 ml/min 10/10/23 04:24
Total Bilirubin 0.3 mg/dl (0.2-1.3) 10/10/23 04:24
AST 20 U/L (17-59) 10/10/23 04:24
ALT < 10 U/L (0-50) 10/10/23 04:24
Alkaline Phosphatase 89 U/L (38-126) 10/10/23 04:24
Most recent labs reviewed.
Micro Results:
10/08/23 08:37 Blood Culture - Final
Blood/Venous Staph aureus MRSA
Gram Stain - Final
10/09/23 09:06 Blood Culture - Preliminary
Blood/Venous No Growth in 24 hours- Final report to follow
10/08/23 08:21 Blood Culture - Preliminary
Blood/Venous Staph aureus MRSA
Gram Stain - Final
10/10/23 04:24 Blood Culture - Pending
Blood/Venous
10/09/23 14:07 Blood Culture - Pending
Blood/Venous
10/08/23 08:43 Influenza Types A & B (LEANA) - Final
Nasal Swab Negative for Influenza A & B, NAAT
Negative results must be combined with clinical observations
and patient history.
Nucleic Acid Amplification test (NAAT)performed on the
[employer] platform.
Care Review
Plan reviewed with: Physician (Dr Milligan - [facility])
--- NOTE | 2023-10-10 14:14 | WOUNDNOTE ---
WOC RN NOTE: Patient visited to follow up on left arm wound. Wound appears stable. No odor noted. Patient tolerated wound care well and denied pain. Will continue to follow as needed.
[2023-10-10 15:10] VITALS: BP 125/55
[2023-10-10] MEDS: CUBICIN 8 MG IV (15:56)
[2023-10-10 16:49] LABS: Glucose - Point of Care 161 mg/dl (70-99)
[2023-10-10] MEDS: NOVOLOG FLEXPEN-LOW RESISTANCE 1 UNITS SC (16:59)
[2023-10-10] MEDS: LOVENOX 40 MG SC (17:01)
--- NOTE | 2023-10-10 20:42 | PTCARENOTE ---
Patient began to have bowel movement in bed. He realized and got out of bed and into the bathroom without assistance. Pt extremely anxious and stating, 'This is so embarrassing', 'I cannot feel anything coming out of my body'. This RN and PCT got
patient cleaned up and new sheets. Educated patient on importance of calling before getting up due to high fall risk and safety. Patient verbalized understanding and stated he will use call shoemaker. Bed alarm initiated. No further complaints at this
time, resting comfortably in bed with call shoemaker within reach.
[2023-10-10 22:06] LABS: Glucose - Point of Care 257 mg/dl (70-99)
[2023-10-10] MEDS: LANTUS 0.0500000000000000028 UNITS SC (22:12)
[2023-10-10] MEDS: POLYSPORIN/DOUBLE ANTIBIOTIC 1 APPLIC TOPICAL (22:30)
[2023-10-10 23:30] VITALS: BP 129/56
[2023-10-11 05:24] VITALS: BMI 17.2
[2023-10-11 06:07] LABS: Hematocrit 31.4 % (39.0-52.0); Hemoglobin 10.5 g/dL (13.0-18.0); Mean Corp Hgb Conc. 33.4 g/dL (33.0-37.0); Mean Corpuscular Hgb 27.9 pg (27.0-31.0); Mean Corpuscular Volume 83.5 fL (80.0-94.0); Mean Platelet Volume 9.7 fL (7.4-10.4); Platelet Count 278 10^3/uL (130-400); Red Blood Cell Count 3.76 10^6/uL (4.70-6.10); Red Cell Dist. Width 15.5 % (11.5-14.5); White Blood Cell Count 5.6 10^3/uL (4.8-10.8)
[2023-10-11 06:43] LABS: ALT (SGPT) < 10 U/L (0-50); AST (SGOT) 18 U/L (17-59); Albumin 2.9 g/dl (3.5-5.0); Alkaline Phosphatase 91 U/L (38-126); Blood Urea Nitrogen 20 mg/dl (9-20); Calcium 8.6 mg/dl (8.4-10.2); Carbon Dioxide 25 mmol/L (22-30); Chloride 107 mmol/L (98-107); Estimated Creatinine Clearance 78 ml/min; Glucose 157 mg/dl (70-99); Phosphorus 3.5 mg/dl (2.5-4.5); Potassium 3.7 mmol/L (3.5-5.1); Sodium 137 mmol/L (135-145); Total Bilirubin 0.3 mg/dl (0.2-1.3); Total Protein 5.5 g/dl (6.3-8.2); eGFR > 60.00
[2023-10-11 07:15] VITALS: BP 131/67
[2023-10-11 07:28] LABS: Glucose - Point of Care 153 mg/dl (70-99)
--- NOTE | 2023-10-11 08:16 | PN.DE.MGMTRT ---
Insulin Management
- -
10/11/2023: Diabetes Management F/U:
Patient admitted 10/01 with failure to thrive, malnourished, breathing problem.
PMH chronic pain, diabetes, depression, prostate CA. Patient states he has had diabetes at least 6 years, did see endocrine in [place] but patient knew more than provider. He was originally given metformin but he became very ill. Started on
insulin Regular and NPH. Patient states about 6 weeks ago he could not eat due to pain so he stopped his insulin. Patient states his blood sugar drops rapidly, he could be 300 then 50 in 10 minutes.
A1C on admission 10.5%, cr .6, eGFR >60.
He is now being treated for Sepsis, MRSA Bacteremia, Cellulitis and possible Endocarditis
Patient is awake, A/O x3, resting in bed and bale to participate in discussion about diabetes management.
Patient received 5 units Lantus @ last evening, FBG this AM 157. Will make no change to Lantus.
Pre meal Glucose range 104 to 161. Will make no changes to AC NovoLog 4 units.
Patient has a working glucose monitor at home and will not need new glucose meter at this time.
Diabetes History
- -
Type of Diabetes: 2 requiring insulin
Pre-Admission Diabetes Regimen
10/11/23
04:55
Creatinine 0.5 L
Lab Results
Hemoglobin A1c 10.5 % (4.0-5.6) H 10/03/23 06:09
Insulin Pump Settings
IP Diabetes Regimen
10/10/23 10/10/23 10/10/23
11:32 16:48 22:05
Glucose
POC Glucose 104 H 161 H 257 H
10/11/23 10/11/23
04:55 07:27
Glucose 157 H
POC Glucose 153 H
Meal type: Dinner
Meal type: Lunch
Meal type: Breakfast
Amount consumed: 100%
Amount consumed: 80%
Amount consumed: 25%
Patient Education
[2023-10-11] MEDS: LYRICA 150 MG PO ×3 (08:26→22:03)
[2023-10-11] MEDS: ZOLOFT 50 MG PO (08:26)
[2023-10-11] MEDS: MIRALAX 17 GRAMS PO (08:26)
[2023-10-11] MEDS: POLYSPORIN/DOUBLE ANTIBIOTIC 1 APPLIC TOPICAL (08:26)
[2023-10-11] MEDS: NOVOLOG FLEXPEN-LOW RESISTANCE 1 UNITS SC ×2 (08:27→17:06)
[2023-10-11] MEDS: NOVOLOG FLEXPEN 4 UNITS SC ×3 (08:27→17:06)
[2023-10-11 10:47] VITALS: BP 109/45
--- NOTE | 2023-10-11 11:06 | VATNOTE ---
L arm phlebitis still red and painful to touch per pt. No swelling noted. Ice applied.
[2023-10-11] MEDS: NORCO 5/325 1 TABLET PO ×2 (11:21→23:00)
--- NOTE | 2023-10-11 11:38 | W.PN.UPDATE ---
Update Note
Progress Note Update
patient seen chart reviewed. discussed w nursing. mr parra is very much aware of his medical status. he wishes his teeth could come out NOW and CHRISTA could be done henrique. he is in some pain from shoulder and that too is a great concern. says he can
tolerate most all of his medical travails but the pain in his shoulder is terrible and he is fearful that snf will ignore its severity. reassured him that would not be the case. he is at this point more agreeable to the prospect of continuing life!
in contrast to his attitude at admit. he speaks frequently of his life experience and at this point it seems to me that it gives him comfort to know he has fully experienced life rather than dwelling on the reality that his life will not be the
same in the future but it can still be worthwhile. continue up titrating zoloft.
[2023-10-11 11:51] LABS: Glucose - Point of Care 203 mg/dl (70-99)
--- NOTE | 2023-10-11 12:00 | W.PN.HOSP.TC ---
Today's Communication/Plan
-
f/u final cultures
Daptomycin
Anticipate PICC
Assessment / Plan
Assessment / Plan
HPI: 68 yo man with hx DM, prostate CA, skin cancer, depression with an episode of SI last month (was not brought to the hospital) presented to the ER by family for evaluation of failure to thrive. Patient lives in the basement of a house with his
siblings. He has history of depression and chronic pain on opiate. He has had no appetite and therefore has not been taking his insulin because he doesn't want his sugar to go too low. He was found on floor by siblings and agreed to come to
hospital given pain in right shoulder.
Shoulder X-Ray: Normal.
A/P:
# Failure to Thrive
# severe protein caloric malnutrition
� Possibly secondary to bacteremia/sepsis
CPK at 42 hence r/o rhabdo
observe off additional gentle IVF
dietary on board
CT CAP ordered for cancer work up, noted liver lesion -
MRI AP for liver lesion (pt has spinal stimulator, awaiting MRI department to check compatibility): No evidence of liver lesion on MRI;
HIV negative, PSA negative
# Chronic bladder incontinence per pt, likely 2/2 previous XRT for prostate cancer
monitor
#Acute on Chronic Bowel incontinence
no sig findings - most likely 2/2 to previous XRT
-f/u NSG outpatient
-BM regimen for constipation
#Sepsis
#Bacteremia, MRSA - unclear source
#Cellulitis
-unclear source although does appear to have cellulitis of left forearm - improved erythema from yesterday
--ECHO�7 mm mobile echodensity, possibly endocarditis. Cannot perform CHRISTA due to multiple loose teeth. Plan is to repeat TTE in 2 weeks. Continue medical treatment with IV antibiotics. Will decide on outpatient CHRISTA after clearance from dental
based on TTE results.
-Vanco switched to Dapto
-F/u repeat blood cultures, f/u final cultures for clearance
-ID consulted
-Plan for PICC most likely today
#Hyponatremia
-monitor
�Resolved
# Depression
TSH WNL at 0.97
psychiatry on board, rec medical/cancer work up, restarted Zoloft
# Hypokalemia
# Hypophosphatemia
# Likely refeeding syndrome
repleted lytes and lytes normalized
cont carb control diet
# Chronic pain, opiate dependence
change WIRELESS MANAGER norco to Q12 PRN (from q8) given likely contributing to anorexia and FTT
xray shoulder without fracture
lidocaine patch over R shoulder not working; symptoms most likely MSK;
LFTS wnl and MRI without evidence of acute duane
Start Toradol
can trial fentanyl patch
# Neuropathic pain and ambulatory dysfunction
continue WIRELESS MANAGER Pregabalin
PT OT eval [facility] SN[facility]
-most likely worsened by uncontrolled DM
# Diabetes
# hypoglycemia
A1C 10.5 %
cover with ISS low
Off further Lantus due to hypoglycemia noted (he received 5 units); restart with 5 lantus and aspart 4 u TID
-DM SOCK LINING EXAMINER management
DVT ppx: Lovenox SQ
DNR
Dispo: PT OT [facility] SN[facility]; I believe he is appropriate for SNF at [place]
Total time spent on today's encounter was 53 minutes which included time spent in counseling the patient/family regarding diagnosis and treatment plan as listed above, goals of care, and symptom management. Case was discussed with nursing staff,
specialists, and care coordinators/case management. All labs and imaging personally reviewed by me. Remainder the time spent in detailed review of previous records, lab data, imaging, and other medical provider documentation.
Anticipated Discharge: Within 24 hours
Subjective/Interval History
-
Date of Service: October 11, 2023
no Acute events overnight
Objective Data
-
Labs:
Laboratory Results
10/11/23
04:55
WBC 5.6
Hgb 10.5 L
Hct 31.4 L
Plt Count 278
Sodium 137
Potassium 3.7
Chloride 107
Carbon Dioxide 25
BUN 20
Creatinine 0.5 L
Glucose 157 H
Calcium 8.6
Total Bilirubin 0.3
AST 18
ALT < 10
Alkaline Phosphatase 91
Vital Signs:
Vital Signs
Temp Pulse Resp BP Pulse Ox
98.8 F 84 14 109/45 97
10/11/23 10:47 10/11/23 10:47 10/11/23 10:47 10/11/23 10:47 10/11/23 10:47
I&O
10/10/23 10/11/23 10/12/23
06:59 06:59 06:59
Intake Total 960 / 960 1380 / 1380
Output Total 550 / 550 100 / 100
Balance 410 / 410 1280 / 1280
Review of Systems
-
History Source: Patient
All other systems: Not reviewed unless documented
Physical Exam
-
General: Well Developed, No Apparent Distress, Comfortable, Conversant, Appears Chronically Ill and Cachectic; Negative Respiratory Distress
HEENT: Normocephalic, Atraumatic, Nose Appears Normal and Ears Appear Normal; Negative Oxygen
Respiratory: Clear to Auscultation and Non Labored Respirations; Negative Accessory Resp Muscle Use
Cardiac: Regular Rhythm and S1/S2
GI: Soft, Nontender, Nondistended and Normal Bowel Sounds
Skin: Warm, Dry and Other ( left forearm wound, erythema)
Neuro: Awake, Alert and Oriented
Psych: Calm and Intact Judgement/Insight
Data Reviewed
-
CT Scan: Report Reviewed by me and Discussed with Patient
Ultrasound: Report Reviewed by me
MRI: Report Reviewed by me
Labs: Labs Reviewed by me
[2023-10-11] MEDS: NOVOLOG FLEXPEN-LOW RESISTANCE 2 UNITS SC (12:14)
[2023-10-11] MEDS: CUBICIN 8 MG IV (13:58)
[2023-10-11] MEDS: DURAGESIC 25 MCG/HR PATCH 1 PATCH TRANSDERM (14:12)
--- NOTE | 2023-10-11 14:52 | W.PN.ID1 ---
Date of Service
Date of Service: October 11, 2023
Today's Communication
picc
dapto x 6 weeks
follow up in 2 weeks
Assessment / Plan
MRSA Bacteremia
Cellulitis L forearm and Wound Infection
DM2
Cachexia
- repeat blood cultures x2 no growth to date
- then repeat daily until persistently clear
- in my opinion best to let the infected wound heal by secondary intention
- tte not revealing, agree that with very loose teeth there are real risks of CHRISTA
- outpatient follow up with OMFS - likely needs a full mouth extraction and dentures
- PICC ordered
- continue daptomycin, cost acceptable to SNF - tentatively for 6 weeks of IV daptomycin
- ideally would get full mouth extraction in the next two weeks - this is most often done outpatinet
- repeat TTE vs CHRISTA in 2 weeks
- follow up in 2-3 weeks
Chief Complaint
-: Bacteremia and Other (cellulitis)
Subjective / Review of Systems
afebrile
bp stable
discussed full mouth extraction - he is agreeable
without leukocytosis
cr stable
repeat blood cultures no growth to date
Vital Signs / Physical Exam
Vital Signs
Vital Signs
Temp Pulse Resp BP Pulse Ox
98.8 F 84 14 109/45 97
10/11/23 10:47 10/11/23 10:47 10/11/23 10:47 10/11/23 10:47 10/11/23 10:47
Physical Exam
Constitutional: No Acute Distress, Chronically Ill and Cachetic
Cardiovascular: Regular Rate
Pulmonary: Symmetric and Non Labored
Gastrointestinal: Non Distended
Lines: PIV
Objective Data
Lab Data
Lab Results
10/11/23 04:55
10/11/23 04:55
Estimated Creat Clear 78 ml/min 10/11/23 04:55
Total Bilirubin 0.3 mg/dl (0.2-1.3) 10/11/23 04:55
AST 18 U/L (17-59) 10/11/23 04:55
ALT < 10 U/L (0-50) 10/11/23 04:55
Alkaline Phosphatase 91 U/L (38-126) 10/11/23 04:55
Most recent labs reviewed.
Micro Results:
10/09/23 14:07 Blood Culture - Preliminary
Blood/Venous No Growth in 48 hours- Final report to follow
10/08/23 08:21 Blood Culture - Final
Blood/Venous Staph aureus MRSA
Gram Stain - Final
10/09/23 09:06 Blood Culture - Preliminary
Blood/Venous No Growth in 48 hours- Final report to follow
10/11/23 04:55 Blood Culture - Pending
Blood/Venous
10/10/23 04:24 Blood Culture - Preliminary
Blood/Venous No Growth in 24 hours- Final report to follow
10/08/23 08:37 Blood Culture - Final
Blood/Venous Staph aureus MRSA
Gram Stain - Final
10/08/23 08:43 Influenza Types A & B (LEANA) - Final
Nasal Swab Negative for Influenza A & B, NAAT
Negative results must be combined with clinical observations
and patient history.
Nucleic Acid Amplification test (NAAT)performed on the
[employer] platform.
--- NOTE | 2023-10-11 15:06 | CM ---
Addendum entered by Ramila Harvey 10/11/23 15:11:
[facility] level II determination
Original Note:
Accepted to [facility] for alf and rehab. Continuation of IV/AB for total 6 weeks. Anticipate Picc insertion prior to discharge.
[2023-10-11 15:43] VITALS: BP 116/66
[2023-10-11 17:03] LABS: Glucose - Point of Care 155 mg/dl (70-99)
[2023-10-11] MEDS: LOVENOX 40 MG SC (17:05)
[2023-10-11 21:30] LABS: Glucose - Point of Care 229 mg/dl (70-99)
[2023-10-11] MEDS: LANTUS 0.0500000000000000028 UNITS SC (22:04)
[2023-10-11 23:43] VITALS: BP 130/78
[2023-10-12 07:05] VITALS: BP 142/57
[2023-10-12 07:11] LABS: Glucose - Point of Care 156 mg/dl (70-99)
[2023-10-12 08:06] LABS: Hematocrit 31.6 % (39.0-52.0); Hemoglobin 10.9 g/dL (13.0-18.0); Mean Corp Hgb Conc. 34.5 g/dL (33.0-37.0); Mean Corpuscular Hgb 28.3 pg (27.0-31.0); Mean Corpuscular Volume 82.1 fL (80.0-94.0); Mean Platelet Volume 9.9 fL (7.4-10.4); Platelet Count 257 10^3/uL (130-400); Red Blood Cell Count 3.85 10^6/uL (4.70-6.10); Red Cell Dist. Width 15.4 % (11.5-14.5); White Blood Cell Count 5.9 10^3/uL (4.8-10.8)
[2023-10-12 08:11] VITALS: BP 142/57
[2023-10-12 08:41] LABS: ALT (SGPT) < 10 U/L (0-50); AST (SGOT) 18 U/L (17-59); Alkaline Phosphatase 91 U/L (38-126); Blood Urea Nitrogen 17 mg/dl (9-20); Calcium 8.6 mg/dl (8.4-10.2); Carbon Dioxide 28 mmol/L (22-30); Chloride 108 mmol/L (98-107); Estimated Creatinine Clearance 78 ml/min; Glucose 142 mg/dl (70-99); Potassium 4.7 mmol/L (3.5-5.1); Sodium 137 mmol/L (135-145); Total Bilirubin 0.3 mg/dl (0.2-1.3); Total Protein 5.6 g/dl (6.3-8.2); eGFR > 60.00
[2023-10-12] MEDS: NOVOLOG FLEXPEN-LOW RESISTANCE SC ×3 (09:03→17:48)
[2023-10-12] MEDS: LYRICA 150 MG PO ×3 (09:04→21:17)
[2023-10-12] MEDS: NOVOLOG FLEXPEN 4 UNITS SC ×3 (09:04→17:48)
[2023-10-12] MEDS: ZOLOFT 50 MG PO (09:04)
[2023-10-12] MEDS: MIRALAX PO (09:04)
[2023-10-12] MEDS: POLYSPORIN/DOUBLE ANTIBIOTIC 1 APPLIC TOPICAL (09:06)
--- NOTE | 2023-10-12 09:54 | W.PN.UPDATE ---
Update Note
Progress Note Update
Psychiatry follow up for depression management. Chart reviewed. Last seen yesterday by Dr Bolanos. Zoloft was increased to 50mg daily on 10/09. Patient reports tolerating it well. He states he slept very well last night for the first time in a while
and is looking forward to getting cleaned up/shaving today. He was able to enjoy breakfast. He reports positive response to zoloft in the past and is hopeful that he will continue to show improvement on it.
MSE- good eye contact. disheveled. fluent speech. less depressed mood. normal affect range. logical and goal directed. denies SI. Denies AVH. Fair I/J
A/P- 68 yo male with MDD, showing some response to zoloft. continue at current dose for now. psychiatry will follow up.
--- NOTE | 2023-10-12 10:33 | PTCARENOTE ---
Pt BS 156 this AM. Sliding scale not given by mistake. 5 standing units administered before breakfast. Pt ok and ate all of his breakfast. Will monitor. Next Accu check due at 1130 Dr. Zaman made aware.
[2023-10-12] MEDS: NORCO 5/325 1 TABLET PO ×2 (11:10→23:29)
--- NOTE | 2023-10-12 11:53 | CM ---
CM reviewed pt with Dr Zaman- medically ready for dc
Plan for [facility] once level II assessment is completed
Discharge Disposition- [facility]/level II pending
--- NOTE | 2023-10-12 12:39 | W.PN.HOSP.TC ---
Today's Communication/Plan
-
dapto
dc ready - cm aware - pending placement
Assessment / Plan
Assessment / Plan
HPI: 68 yo man with hx DM, prostate CA, skin cancer, depression with an episode of SI last month (was not brought to the hospital) presented to the ER by family for evaluation of failure to thrive. Patient lives in the basement of a house with his
siblings. He has history of depression and chronic pain on opiate. He has had no appetite and therefore has not been taking his insulin because he doesn't want his sugar to go too low. He was found on floor by siblings and agreed to come to
hospital given pain in right shoulder.
Shoulder X-Ray: Normal.
A/P:
# Failure to Thrive
# severe protein caloric malnutrition
� Possibly secondary to bacteremia/sepsis
CPK at 42 hence r/o rhabdo
observe off additional gentle IVF
dietary on board
CT CAP ordered for cancer work up, noted liver lesion -
MRI AP for liver lesion (pt has spinal stimulator, awaiting MRI department to check compatibility): No evidence of liver lesion on MRI;
HIV negative, PSA negative
# Chronic bladder incontinence per pt, likely 2/2 previous XRT for prostate cancer
monitor
#Acute on Chronic Bowel incontinence
no sig findings - most likely 2/2 to previous XRT
-f/u NSG outpatient
-BM regimen for constipation
#Sepsis
#Bacteremia, MRSA - unclear source - possibly cellulitis?
#Cellulitis
-unclear source although does appear to have cellulitis of left forearm - improved erythema from yesterday
--ECHO�7 mm mobile echodensity, possibly endocarditis. Cannot perform CHRISTA due to multiple loose teeth. Plan is to repeat TTE in 2 weeks. Continue medical treatment with IV antibiotics. Will decide on outpatient CHRISTA after clearance from dental
based on TTE results.
-Vanco switched to Dapto x 6 weeks
-ID consulted
-PICC placed
-F/u ID in 2 weeks
#Hyponatremia
-monitor
�Resolved
# Depression
TSH WNL at 0.97
psychiatry on board, rec medical/cancer work up, restarted Zoloft
# Hypokalemia
# Hypophosphatemia
# Likely refeeding syndrome
repleted lytes and lytes normalized
cont carb control diet
# Chronic pain, opiate dependence
change OR SCRUB TECH norco to Q12 PRN (from q8) given likely contributing to anorexia and FTT
xray shoulder without fracture
lidocaine patch over R shoulder not working; symptoms most likely MSK;
LFTS wnl and MRI without evidence of acute duane
Start Toradol
can trial fentanyl patch
# Neuropathic pain and ambulatory dysfunction
continue OR SCRUB TECH Pregabalin
PT OT eval [facility] SN[facility]
-most likely worsened by uncontrolled DM
# Diabetes
# hypoglycemia
A1C 10.5 %
cover with ISS low
Off further Lantus due to hypoglycemia noted (he received 5 units); restart with 5 lantus and aspart 4 u TID
-DM CLINICAL SERVICES ASSISTANT management
DVT ppx: Lovenox SQ
DNR
Dispo: PT OT [facility] SNF; I believe he is appropriate for SNF at [place];
Anticipated Discharge: > 48 hours
Subjective/Interval History
-
Date of Service: October 12, 2023
No acute events
Objective Data
-
Labs:
Laboratory Results
10/12/23
07:25
WBC 5.9
Hgb 10.9 L
Hct 31.6 L
Plt Count 257
Sodium 137
Potassium 4.7 D
Chloride 108 H
Carbon Dioxide 28
BUN 17
Creatinine 0.6 L
Glucose 142 H
Calcium 8.6
Total Bilirubin 0.3
AST 18
ALT < 10
Alkaline Phosphatase 91
Vital Signs:
Vital Signs
Temp Pulse Resp BP Pulse Ox
98.0 F 73 14 142/57 98
10/12/23 07:05 10/12/23 07:05 10/12/23 07:05 10/12/23 07:05 10/12/23 07:05
I&O
10/11/23 10/12/23 10/13/23
06:59 06:59 06:59
Intake Total 1380 / 1380 700 / 700
Output Total 100 / 100 725 / 725
Balance 1280 / 1280 -25 / -25
Review of Systems
-
History Source: Patient
All other systems: Not reviewed unless documented
Physical Exam
-
General: Well Developed, No Apparent Distress, Comfortable, Conversant, Appears Chronically Ill and Cachectic; Negative Respiratory Distress
HEENT: Normocephalic, Atraumatic, Nose Appears Normal and Ears Appear Normal; Negative Oxygen
Respiratory: Clear to Auscultation and Non Labored Respirations; Negative Accessory Resp Muscle Use
Cardiac: Regular Rhythm and S1/S2
GI: Soft, Nontender, Nondistended and Normal Bowel Sounds
Skin: Warm, Dry and Other ( left forearm wound, improving- improving)
Neuro: Awake, Alert and Oriented
Psych: Calm and Intact Judgement/Insight
Data Reviewed
-
CT Scan: Report Reviewed by me and Discussed with Patient
Ultrasound: Report Reviewed by me
MRI: Report Reviewed by me
Labs: Labs Reviewed by me
[2023-10-12 13:27] LABS: Glucose - Point of Care 234 mg/dl (70-99)
[2023-10-12] MEDS: NOVOLOG FLEXPEN-LOW RESISTANCE 2 UNITS SC (13:29)
[2023-10-12] MEDS: CUBICIN 8 MG IV (13:35)
[2023-10-12 15:05] VITALS: BP 106/61
--- NOTE | 2023-10-12 16:37 | W.PN.ID1 ---
Date of Service
Date of Service: October 12, 2023
Today's Communication
continue daptomycin
Assessment / Plan
MRSA Bacteremia
Cellulitis L forearm and Wound Infection
DM2
Cachexia
- repeat blood cultures x2 remain no growth to date
- in my opinion best to let the infected wound heal by secondary intention
- tte not revealing, agree that with very loose teeth there are real risks of CHRISTA
- outpatient follow up with OMFS - likely needs a full mouth extraction and dentures
- PICC
- continue daptomycin, cost acceptable to SNF - tentatively for 6 weeks of IV daptomycin
- ideally would get full mouth extraction in the next two weeks - this is most often done outpatinet
- repeat TTE vs CHRISTA in 2 weeks
- follow up in 2-3 weeks
Chief Complaint
-: Bacteremia and Other (cellulitis)
Subjective / Review of Systems
afebrile
bp stable
without leukocytosis
cr stbale
repeat blood cultures no growth to date
Vital Signs / Physical Exam
Vital Signs
Vital Signs
Temp Pulse Resp BP Pulse Ox
98.0 F 90 16 106/61 96
10/12/23 15:05 10/12/23 15:05 10/12/23 15:05 10/12/23 15:05 10/12/23 15:05
Physical Exam
Constitutional: No Acute Distress and Chronically Ill
Cardiovascular: Regular Rate
Pulmonary: Symmetric
Gastrointestinal: Non Distended
Neurological: Awake
Objective Data
Lab Data
Lab Results
10/12/23 07:25
10/12/23 07:25
Estimated Creat Clear 78 ml/min 10/12/23 07:25
Total Bilirubin 0.3 mg/dl (0.2-1.3) 10/12/23 07:25
AST 18 U/L (17-59) 10/12/23 07:25
ALT < 10 U/L (0-50) 10/12/23 07:25
Alkaline Phosphatase 91 U/L (38-126) 10/12/23 07:25
Most recent labs reviewed.
Micro Results:
10/09/23 14:07 Blood Culture - Preliminary
Blood/Venous No Growth in 72 hours- Final report to follow
10/12/23 09:35 Blood Culture - Pending
Blood/Venous
10/09/23 09:06 Blood Culture - Preliminary
Blood/Venous No Growth in 72 hours- Final report to follow
10/11/23 04:55 Blood Culture - Preliminary
Blood/Venous No Growth in 24 hours- Final report to follow
10/10/23 04:24 Blood Culture - Preliminary
Blood/Venous No Growth in 48 hours- Final report to follow
10/08/23 08:21 Blood Culture - Final
Blood/Venous Staph aureus MRSA
Gram Stain - Final
10/08/23 08:37 Blood Culture - Final
Blood/Venous Staph aureus MRSA
Gram Stain - Final
10/08/23 08:43 Influenza Types A & B (LEANA) - Final
Nasal Swab Negative for Influenza A & B, NAAT
Negative results must be combined with clinical observations
and patient history.
Nucleic Acid Amplification test (NAAT)performed on the
[employer] platform.
[2023-10-12 17:08] LABS: Glucose - Point of Care 142 mg/dl (70-99)
[2023-10-12] MEDS: LOVENOX 40 MG SC (17:47)
[2023-10-12] MEDS: LANTUS 0.0500000000000000028 UNITS SC (21:17)
[2023-10-12 21:24] LABS: Glucose - Point of Care 189 mg/dl (70-99)
[2023-10-12 23:13] VITALS: BP 141/67
[2023-10-13 01:10] VITALS: BMI 17.7
[2023-10-13 06:14] LABS: Hematocrit 28.4 % (39.0-52.0); Hemoglobin 9.6 g/dL (13.0-18.0); Mean Corp Hgb Conc. 33.8 g/dL (33.0-37.0); Mean Corpuscular Hgb 27.9 pg (27.0-31.0); Mean Corpuscular Volume 82.6 fL (80.0-94.0); Mean Platelet Volume 9.3 fL (7.4-10.4); Platelet Count 273 10^3/uL (130-400); Red Blood Cell Count 3.44 10^6/uL (4.70-6.10); Red Cell Dist. Width 15.3 % (11.5-14.5); White Blood Cell Count 5.8 10^3/uL (4.8-10.8)
[2023-10-13 06:45] LABS: ALT (SGPT) < 10 U/L (0-50); AST (SGOT) 16 U/L (17-59); Albumin 2.7 g/dl (3.5-5.0); Alkaline Phosphatase 80 U/L (38-126); Blood Urea Nitrogen 15 mg/dl (9-20); Calcium 8.7 mg/dl (8.4-10.2); Carbon Dioxide 30 mmol/L (22-30); Chloride 103 mmol/L (98-107); Estimated Creatinine Clearance 80 ml/min; Glucose 115 mg/dl (70-99); Potassium 3.8 mmol/L (3.5-5.1); Sodium 136 mmol/L (135-145); Total Bilirubin 0.4 mg/dl (0.2-1.3); Total Protein 5.3 g/dl (6.3-8.2); eGFR > 60.00
[2023-10-13 07:03] LABS: Glucose - Point of Care 102 mg/dl (70-99)
[2023-10-13 07:05] VITALS: BP 155/69
[2023-10-13] MEDS: POLYSPORIN/DOUBLE ANTIBIOTIC 1 APPLIC TOPICAL (08:00)
[2023-10-13] MEDS: LYRICA 150 MG PO ×3 (08:19→21:43)
[2023-10-13] MEDS: ZOLOFT 50 MG PO (08:19)
[2023-10-13] MEDS: NOVOLOG FLEXPEN 4 UNITS SC ×3 (08:20→16:41)
[2023-10-13] MEDS: NOVOLOG FLEXPEN-LOW RESISTANCE SC (08:20)
[2023-10-13] MEDS: MIRALAX PO (08:20)
--- NOTE | 2023-10-13 10:53 | W.PN.HOSP.TC ---
Today's Communication/Plan
-
dapto
iron labs
dc ready - cm aware
Assessment / Plan
Assessment / Plan
HPI: 68 yo man with hx DM, prostate CA, skin cancer, depression with an episode of SI last month (was not brought to the hospital) presented to the ER by family for evaluation of failure to thrive. Patient lives in the basement of a house with his
siblings. He has history of depression and chronic pain on opiate. He has had no appetite and therefore has not been taking his insulin because he doesn't want his sugar to go too low. He was found on floor by siblings and agreed to come to
hospital given pain in right shoulder.
Shoulder X-Ray: Normal.
A/P:
# Failure to Thrive
# severe protein caloric malnutrition
� Possibly secondary to bacteremia/sepsis
CPK at 42 hence r/o rhabdo
observe off additional gentle IVF
dietary on board
CT CAP ordered for cancer work up, noted liver lesion -
MRI AP for liver lesion (pt has spinal stimulator, awaiting MRI department to check compatibility): No evidence of liver lesion on MRI;
HIV negative, PSA negative
# Chronic bladder incontinence per pt, likely 2/2 previous XRT for prostate cancer
monitor
#Acute on Chronic Bowel incontinence
no sig findings - most likely 2/2 to previous XRT
-f/u NSG outpatient
-BM regimen for constipation
#Sepsis
#Bacteremia, MRSA - unclear source - possibly cellulitis?
#Cellulitis
-unclear source although does appear to have cellulitis of left forearm - improved erythema from yesterday
--ECHO�7 mm mobile echodensity, possibly endocarditis. Cannot perform CHRISTA due to multiple loose teeth. Plan is to repeat TTE in 2 weeks. Continue medical treatment with IV antibiotics. Will decide on outpatient CHRISTA after clearance from dental
based on TTE results.
-Vanco switched to Dapto x 6 weeks
-ID consulted
-PICC placed
-F/u ID in 2 weeks
#Hyponatremia
-monitor
�Resolved
# Depression
TSH WNL at 0.97
psychiatry on board, rec medical/cancer work up, restarted Zoloft
#Anemia
-no obvious gross bleedining
-possibly 2/2 to chronic disease
-ctm
-iron labs
# Hypokalemia
# Hypophosphatemia
# Likely refeeding syndrome
repleted lytes and lytes normalized
cont carb control diet
# Chronic pain, opiate dependence
change GAS UTILITY WORKER norco to Q12 PRN (from q8) given likely contributing to anorexia and FTT
xray shoulder without fracture
lidocaine patch over R shoulder not working; symptoms most likely MSK;
LFTS wnl and MRI without evidence of acute duane
Start Toradol
can trial fentanyl patch
# Neuropathic pain and ambulatory dysfunction
continue GAS UTILITY WORKER Pregabalin
PT OT eval [facility] SNF
-most likely worsened by uncontrolled DM
# Diabetes
# hypoglycemia
A1C 10.5 %
cover with ISS low
Restart with 5 lantus and aspart 4 u TID
-DM TICKET BROKER management
DVT ppx: Lovenox SQ
DNR
Dispo: PT OT [facility] SNF; I believe he is appropriate for SNF at [place]; dc ready; cm aware
Anticipated Discharge: 24 - 48 hours
Subjective/Interval History
-
Date of Service: October 13, 2023
No acute events
Objective Data
-
Labs:
Laboratory Results
10/13/23
05:51
WBC 5.8
Hgb 9.6 L
Hct 28.4 L
Plt Count 273
Sodium 136
Potassium 3.8
Chloride 103
Carbon Dioxide 30
BUN 15
Creatinine 0.6 L
Glucose 115 H
Calcium 8.7
Total Bilirubin 0.4
AST 16 L
ALT < 10
Alkaline Phosphatase 80
Vital Signs:
Vital Signs
Temp Pulse Resp BP Pulse Ox
98.1 F 78 16 155/69 97
10/13/23 07:05 10/13/23 07:05 10/13/23 07:05 10/13/23 07:05 10/13/23 08:00
I&O
10/12/23 10/13/23 10/14/23
06:59 06:59 06:59
Intake Total 700 / 700 1380 / 1380
Output Total 725 / 725 350 / 350
Balance -25 / -25 1030 / 1030
Review of Systems
-
History Source: Patient
All other systems: Not reviewed unless documented
Physical Exam
-
General: Well Developed, No Apparent Distress, Comfortable, Conversant, Appears Chronically Ill and Cachectic; Negative Respiratory Distress
HEENT: Normocephalic, Atraumatic, Nose Appears Normal and Ears Appear Normal; Negative Oxygen
Respiratory: Clear to Auscultation and Non Labored Respirations; Negative Accessory Resp Muscle Use
Cardiac: Regular Rhythm and S1/S2
GI: Soft, Nontender, Nondistended and Normal Bowel Sounds
Skin: Warm, Dry and Other ( left forearm wound, improving- improving)
Neuro: Awake, Alert and Oriented
Psych: Calm and Intact Judgement/Insight
Data Reviewed
-
CT Scan: Report Reviewed by me and Discussed with Patient
Ultrasound: Report Reviewed by me
MRI: Report Reviewed by me
Labs: Labs Reviewed by me
[2023-10-13 11:41] LABS: Glucose - Point of Care 263 mg/dl (70-99)
[2023-10-13] MEDS: NOVOLOG FLEXPEN-LOW RESISTANCE 3 UNITS SC ×2 (11:41→16:42)
[2023-10-13] MEDS: SENOKOT-S 1 TABLET PO (11:42)
[2023-10-13] MEDS: NORCO 5/325 1 TABLET PO ×2 (11:42→23:44)
--- NOTE | 2023-10-13 11:54 | W.PN.UPDATE ---
Update Note
Progress Note Update
Psychiatry follow up for depression management. Patient reports tolerating Zoloft well without side effects. He did not sleep as well last night. he is eating ok. He reports some response to zoloft so far. Explained it takes several weeks to see
full effect.
MSE- good eye contact. cooperative and pleasant. fluent speech. less depressed mood. normal affect range. logical and goal directed. denies SI. Denies AVH. Fair I/J
A/P- 68 yo male with MDD, showing some response to zoloft. continue at 50mg daily. Per primary team he is medically stable for dc. psychiatry will sign off.
[2023-10-13 12:36] LABS: Iron 59 ug/dl (49-181)
[2023-10-13 12:45] LABS: Percent Saturation 31 % (20-50); Total Iron Binding Capacity 190 ug/dl (261-462)
--- NOTE | 2023-10-13 13:19 | PTCARENOTE ---
assessed left arm area of (previous) infitrate. arm red, warm, soft. pt states that it is less swollen than yesterday and he also states that he feels that the redness has receded. arm elevated and heat applied. will continue to monitor
[2023-10-13 13:52] VITALS: PULSE 91; O2SAT 98
[2023-10-13] MEDS: CUBICIN 8 MG IV (14:33)
[2023-10-13] MEDS: FLUSH (NSS) 1 FLUSH IV (14:38)
[2023-10-13 15:05] VITALS: BP 142/63
[2023-10-13 16:15] VITALS: BP 142/63
[2023-10-13 16:41] LABS: Glucose - Point of Care 258 mg/dl (70-99)
[2023-10-13] MEDS: LOVENOX 40 MG SC (17:29)
[2023-10-13 21:37] LABS: Glucose - Point of Care 330 mg/dl (70-99)
[2023-10-13] MEDS: LANTUS 0.0500000000000000028 UNITS SC (21:41)
[2023-10-13 22:44] VITALS: BP 159/77
--- NOTE | 2023-10-14 02:24 | PTCARENOTE ---
Patients glucose 330 at 21:35. Messaged CONTENT ANALYST. 5 units of Lantus given at 21:41. No other action at this time. Patient is stable in the room.
[2023-10-14 05:54] VITALS: BMI 17.7
[2023-10-14 06:53] LABS: Hematocrit 29.1 % (39.0-52.0); Hemoglobin 9.9 g/dL (13.0-18.0); Mean Corpuscular Hgb 27.9 pg (27.0-31.0); Mean Platelet Volume 9.3 fL (7.4-10.4); Platelet Count 290 10^3/uL (130-400); Red Blood Cell Count 3.55 10^6/uL (4.70-6.10); White Blood Cell Count 5.7 10^3/uL (4.8-10.8)
[2023-10-14 07:00] VITALS: BP 155/72
[2023-10-14 07:05] LABS: Glucose - Point of Care 149 mg/dl (70-99)
[2023-10-14 07:23] LABS: ALT (SGPT) < 10 U/L (0-50); AST (SGOT) 17 U/L (17-59); Albumin 2.8 g/dl (3.5-5.0); Alkaline Phosphatase 86 U/L (38-126); Blood Urea Nitrogen 12 mg/dl (9-20); Calcium 8.7 mg/dl (8.4-10.2); Carbon Dioxide 28 mmol/L (22-30); Chloride 104 mmol/L (98-107); Estimated Creatinine Clearance 80 ml/min; Glucose 154 mg/dl (70-99); Potassium 4.1 mmol/L (3.5-5.1); Sodium 137 mmol/L (135-145); Total Bilirubin 0.4 mg/dl (0.2-1.3); Total Protein 5.4 g/dl (6.3-8.2); eGFR > 60.00
[2023-10-14] MEDS: LYRICA 150 MG PO ×3 (07:47→21:11)
[2023-10-14] MEDS: NOVOLOG FLEXPEN 4 UNITS SC (07:48)
[2023-10-14] MEDS: ZOLOFT 50 MG PO (07:48)
[2023-10-14] MEDS: MIRALAX PO (07:48)
[2023-10-14] MEDS: POLYSPORIN/DOUBLE ANTIBIOTIC 1 APPLIC TOPICAL (07:48)
[2023-10-14] MEDS: NOVOLOG FLEXPEN-LOW RESISTANCE SC (07:48)
--- NOTE | 2023-10-14 09:30 | PN.DE.MGMTRT ---
Insulin Management
- -
10/14/2023: Diabetes Management F/U:
Patient admitted 10/01 with failure to thrive, malnourished, breathing problem.
PMH chronic pain, diabetes, depression, prostate CA. Patient states he has had diabetes at least 6 years, did see endocrine in [place] but patient knew more than provider. He was originally given metformin but he became very ill. Started on
insulin Regular and NPH. Patient states about 6 weeks ago he could not eat due to pain so he stopped his insulin. Patient states his blood sugar drops rapidly, he could be 300 then 50 in 10 minutes.
A1C on admission 10.5%, cr .6, eGFR >60.
He is now being treated for Sepsis, MRSA Bacteremia, Cellulitis and possible Endocarditis.
Patient is awake, A/O x3, resting in bed and bale to participate in discussion about diabetes management.
FBG this AM 154. Will make no change to Lantus, cont 5 units in AM.
Premeal and HS glucose remain elevated as high as 330 @ HS and 258 @ Dinner last evening
Will increase AC NovoLog to 7 units. Cont moderate corrective insulin
Patient has a working glucose monitor at home and will not need new glucose meter at this time.
Diabetes History
- -
Type of Diabetes: 2 requiring insulin
Pre-Admission Diabetes Regimen
10/14/23
06:18
Creatinine 0.5 L
Lab Results
Hemoglobin A1c 10.5 % (4.0-5.6) H 10/03/23 06:09
Insulin Pump Settings
IP Diabetes Regimen
10/13/23 10/13/23 10/13/23
11:40 16:39 21:35
Glucose
POC Glucose 263 H 258 H 330 H
10/14/23 10/14/23
06:18 07:03
Glucose 154 H
POC Glucose 149 H
Meal type: Lunch
Meal type: Breakfast
Amount consumed: 75%
Amount consumed: 100%
Patient Education
--- NOTE | 2023-10-14 10:33 | W.PN.HOSP.TC ---
Today's Communication/Plan
-
pending SNF
Assessment / Plan
Assessment / Plan
HPI: 68 yo man with hx DM, prostate CA, skin cancer, depression with an episode of SI last month (was not brought to the hospital) presented to the ER by family for evaluation of failure to thrive. Patient lives in the basement of a house with his
siblings. He has history of depression and chronic pain on opiate. He has had no appetite and therefore has not been taking his insulin because he doesn't want his sugar to go too low. He was found on floor by siblings and agreed to come to
hospital given pain in right shoulder.
Shoulder X-Ray: Normal.
A/P:
# Failure to Thrive
# severe protein caloric malnutrition
Possibly secondary to bacteremia/sepsis
CPK at 42 hence r/o rhabdo
off gentle IVF
dietary on board
CT CAP ordered for cancer work up, noted possible liver lesion
MRI AP: No evidence of liver lesion on MRI
HIV negative, PSA negative
# Chronic bladder incontinence per pt, likely 2/2 previous XRT for prostate cancer
monitor
# Acute on Chronic Bowel incontinence
no sig findings - most likely 2/2 to previous XRT
f/u NSG outpatient
BM regimen for constipation
# Sepsis POA
# Bacteremia with MRSA - unclear source - possibly cellulitis
# Cellulitis
unclear source although does appear to have cellulitis of left forearm - improved erythema
ECHO�7 mm mobile echodensity, possibly endocarditis. Cannot perform CHRISTA due to multiple loose teeth. Plan is to repeat TTE in 2 weeks. Will decide on outpatient CHRISTA after clearance from dental based on TTE results.
Continue medical treatment with IV antibiotics. Vanco switched to Dapto x 6 weeks. PICC placed
ID on board
F/u ID in 2 weeks
# Hyponatremia, Resolved
# Depression
TSH WNL at 0.97
psychiatry on board, rec medical/cancer work up, restarted Zoloft
# Anemia
possibly 2/2 to chronic disease
no obvious gross bleeding
# Hypokalemia
# Hypophosphatemia
# Likely refeeding syndrome
repleted lytes and lytes normalized
cont carb control diet
# Chronic pain, opiate dependence
change VETERANS ADVISER [place] to Q12 PRN (from q8) given likely contributing to anorexia and FTT
xray shoulder without fracture
lidocaine patch over R shoulder not working; symptoms most likely MSK;
LFTS wnl and MRI without evidence of acute duane
Off Toradol
started fentanyl patch
# Neuropathic pain and ambulatory dysfunction
continue VETERANS ADVISER Pregabalin
PT OT eval recc SNF
most likely worsened by uncontrolled DM
# Diabetes
# hypoglycemia
A1C 10.5 %
cover with ISS low
Restarted lantus 5 units and aspart 4u TID
DM GAMING DEALER management
DVT ppx: Lovenox SQ
DNR
Dispo: PT OT recc SNF; I believe he is appropriate for SNF at dc; dc ready; cm aware
Anticipated Discharge: 24 - 48 hours
Subjective/Interval History
-
Date of Service: October 14, 2023
Objective Data
-
Labs:
Laboratory Results
10/14/23
06:18
WBC 5.7
Hgb 9.9 L
Hct 29.1 L
Plt Count 290
Sodium 137
Potassium 4.1
Chloride 104
Carbon Dioxide 28
BUN 12
Creatinine 0.5 L
Glucose 154 H
Calcium 8.7
Total Bilirubin 0.4
AST 17
ALT < 10
Alkaline Phosphatase 86
Vital Signs:
Vital Signs
Temp Pulse Resp BP Pulse Ox
36.8 C 75 16 155/72 97
10/14/23 07:00 10/14/23 07:00 10/14/23 07:00 10/14/23 07:00 10/14/23 10:19
I&O
10/13/23 10/14/23 10/15/23
06:59 06:59 06:59
Intake Total 1380 / 1380 1420 / 1420
Output Total 350 / 350 860 / 860
Balance 1030 / 1030 560 / 560
Review of Systems
-
All other systems: Reviewed and negative
Physical Exam
-
General: Well Developed, No Apparent Distress, Comfortable, Conversant, Appears Chronically Ill and Cachectic; Negative Respiratory Distress
HEENT: Normocephalic, Atraumatic, Nose Appears Normal and Ears Appear Normal; Negative Oxygen
Respiratory: Clear to Auscultation and Non Labored Respirations; Negative Accessory Resp Muscle Use
Cardiac: Regular Rhythm and S1/S2
GI: Soft, Nontender, Nondistended and Normal Bowel Sounds
Skin: Warm, Dry and Other ( left forearm wound, improving)
Neuro: Awake, Alert and Oriented
Psych: Calm and Intact Judgement/Insight
Data Reviewed
-
CT Scan: Report Reviewed by me and Discussed with Patient
Ultrasound: Report Reviewed by me
MRI: Report Reviewed by me
Labs: Labs Reviewed by me
[2023-10-14 11:27] LABS: Glucose - Point of Care 313 mg/dl (70-99)
[2023-10-14] MEDS: NOVOLOG FLEXPEN 7 UNITS SC ×2 (11:39→17:36)
[2023-10-14] MEDS: NOVOLOG FLEXPEN-MODERATE RESISTANCE 7 UNITS SC (11:40)
[2023-10-14] MEDS: NORCO 5/325 1 TABLET PO ×2 (11:44→23:46)
[2023-10-14] MEDS: SENOKOT-S 1 TABLET PO (11:44)
[2023-10-14] MEDS: DURAGESIC 25 MCG/HR PATCH 1 PATCH TRANSDERM (13:02)
--- NOTE | 2023-10-14 14:33 | W.PN.ID1 ---
Date of Service
Date of Service: October 14, 2023
Today's Communication
ck in am
Assessment / Plan
MRSA Bacteremia
Cellulitis L forearm and Wound Infection
DM2
Cachexia
- repeat blood cultures x2 remain no growth to date
- in my opinion best to let the infected wound heal by secondary intention
- tte not revealing, agree that with very loose teeth there are real risks of CHRISTA
- outpatient follow up with OMFS - likely needs a full mouth extraction and dentures
- PICC
- continue daptomycin, cost acceptable to SNF - tentatively for 6 weeks of IV daptomycin
- ideally would get full mouth extraction in the next two weeks - this is most often done outpatinet
- repeat TTE vs CHRISTA in 2 weeks
- follow up in 2-3 weeks
Chief Complaint
-: Bacteremia and Other (cellulitis)
Subjective / Review of Systems
afebrile
bp stable
without leukocytosis
cr stable
phlebitis of PIV on the L arm - PIV removed and improving
tolerating current therapies
blood cultures clearing
Vital Signs / Physical Exam
Vital Signs
Vital Signs
Temp Pulse Resp BP Pulse Ox
98.3 F 75 16 155/72 97
10/14/23 07:00 10/14/23 07:00 10/14/23 07:00 10/14/23 07:00 10/14/23 10:19
Physical Exam
Constitutional: No Acute Distress
Cardiovascular: Regular Rate and S1/S2; Negative Murmur or Rub
Pulmonary: Clear and Symmetric; Negative Wheezes or Rales
Gastrointestinal: Soft, Non Tender, Non Distended and Normal Bowel Sounds
Extremities: Other (phlebitis L arm)
Skin: Warm and Dry; Negative Rash or Jaundice
Objective Data
Lab Data
Lab Results
10/14/23 06:18
10/14/23 06:18
Estimated Creat Clear 80 ml/min 10/14/23 06:18
Total Bilirubin 0.4 mg/dl (0.2-1.3) 10/14/23 06:18
AST 17 U/L (17-59) 10/14/23 06:18
ALT < 10 U/L (0-50) 10/14/23 06:18
Alkaline Phosphatase 86 U/L (38-126) 10/14/23 06:18
Most recent labs reviewed.
Micro Results:
10/09/23 14:07 Blood Culture - Final
Blood/Venous No Growth - Final Report
10/12/23 09:35 Blood Culture - Preliminary
Blood/Venous No Growth in 48 hours- Final report to follow
10/09/23 09:06 Blood Culture - Final
Blood/Venous No Growth - Final Report
10/11/23 04:55 Blood Culture - Preliminary
Blood/Venous No Growth in 72 hours- Final report to follow
10/10/23 04:24 Blood Culture - Preliminary
Blood/Venous No Growth in 4 days- Final report to follow
10/08/23 08:21 Blood Culture - Final
Blood/Venous Staph aureus MRSA
Gram Stain - Final
10/08/23 08:37 Blood Culture - Final
Blood/Venous Staph aureus MRSA
Gram Stain - Final
10/08/23 08:43 Influenza Types A & B ([facility]) - Final
Nasal Swab Negative for Influenza A & B, NAAT
Negative results must be combined with clinical observations
and patient history.
Nucleic Acid Amplification test (NAAT)performed on the
docplanner platform.
[2023-10-14] MEDS: CUBICIN 8 MG IV (14:40)
[2023-10-14] MEDS: FLUSH (NSS) 1 FLUSH IV (14:42)
[2023-10-14 15:00] VITALS: BP 139/62
[2023-10-14 16:32] LABS: Glucose - Point of Care 264 mg/dl (70-99)
--- NOTE | 2023-10-14 16:41 | CM ---
Jane Kraft, accessor, for [facility] visited patient to complete evaluation for PASRR level II request. She anticipates determination will take one week. Patient accepted to [facility].
[2023-10-14] MEDS: LOVENOX 40 MG SC (17:36)
[2023-10-14] MEDS: NOVOLOG FLEXPEN-MODERATE RESISTANCE 5 UNITS SC (17:37)
[2023-10-14] MEDS: LANTUS 0.0500000000000000028 UNITS SC (21:11)
[2023-10-14 21:14] LABS: Glucose - Point of Care 266 mg/dl (70-99)
[2023-10-14 23:29] VITALS: BP 129/79
[2023-10-15 05:34] VITALS: BMI 17.5
[2023-10-15 06:49] LABS: Hematocrit 28.3 % (39.0-52.0); Hemoglobin 9.7 g/dL (13.0-18.0); Mean Corp Hgb Conc. 34.3 g/dL (33.0-37.0); Mean Corpuscular Hgb 28.5 pg (27.0-31.0); Mean Corpuscular Volume 83.2 fL (80.0-94.0); Mean Platelet Volume 9.4 fL (7.4-10.4); Platelet Count 291 10^3/uL (130-400); Red Cell Dist. Width 15.1 % (11.5-14.5); White Blood Cell Count 5.6 10^3/uL (4.8-10.8)
--- NOTE | 2023-10-15 07:13 | PN.DE.MGMTRT ---
Insulin Management
- -
10/15/2023: Diabetes Management Follow up:
Patient admitted 10/01 with failure to thrive, malnourished, breathing problem.
PMH chronic pain, diabetes, depression, prostate CA. Patient states he has had diabetes at least 6 years, did see endocrine in [place] but patient knew more than provider. He was originally given metformin but he became very ill. Started on
insulin Regular and NPH. Patient states about 6 weeks ago he could not eat due to pain so he stopped his insulin. Patient states his blood sugar drops rapidly, he could be 300 then 50 in 10 minutes.
A1C on admission 10.5%, cr .6, eGFR >60.
He is now being treated for Sepsis, MRSA Bacteremia, Cellulitis and possible Endocarditis.
Patient is awake alert and oriented, able to understand and participate in update on diabetes management including increase in AC novolog.
FBG this AM 121 venous . Will make no change to Lantus, cont 5 units in AM.
Premeal and HS glucose remain elevated range 264 to 313, requiring up to 7 units additional corrective insulin. AC novolog increased yesterday to 7 units AC with moderate corrective insulin first dose with lunch. Will follow pre lunch glucose for
possible need to increase AC novolog again today. Discussed with nurse if glucose elevated pre lunch to tt for dose change.
Patient has a working glucose monitor at home and will not need new glucose meter at this time.
Diabetes History
- -
Type of Diabetes: 2 requiring insulin
Pre-Admission Diabetes Regimen
10/14/23
06:18
Creatinine 0.5 L
Lab Results
Hemoglobin A1c 10.5 % (4.0-5.6) H 10/03/23 06:09
Insulin Pump Settings
IP Diabetes Regimen
10/14/23 10/14/23 10/14/23
06:18 11:25 16:31
Glucose 154 H
POC Glucose 313 H 264 H
10/14/23
21:12
Glucose
POC Glucose 266 H
Meal type: Dinner
Meal type: Lunch
Meal type: Breakfast
Amount consumed: 60%
Amount consumed: 100%
Amount consumed: 100%
Patient Education
[2023-10-15 07:15] LABS: Blood Urea Nitrogen 13 mg/dl (9-20); Calcium 8.7 mg/dl (8.4-10.2); Carbon Dioxide 30 mmol/L (22-30); Chloride 106 mmol/L (98-107); Creatine Phosphokinase 27 U/L (55-170); Estimated Creatinine Clearance 80 ml/min; Glucose 121 mg/dl (70-99); Potassium 4.2 mmol/L (3.5-5.1); Sodium 136 mmol/L (135-145); eGFR > 60.00
--- NOTE | 2023-10-15 07:15 | PTCARENOTE ---
Patient's Fentanyl patch on right upper arm intact noted.
[2023-10-15 07:45] LABS: Glucose - Point of Care 135 mg/dl (70-99)
[2023-10-15 07:46] VITALS: BP 137/62
--- NOTE | 2023-10-15 09:08 | W.PN.HOSP.TC ---
Today's Communication/Plan
-
pending SNF
Assessment / Plan
Assessment / Plan
HPI: 68 yo man with hx DM, prostate CA, skin cancer, depression with an episode of SI last month (was not brought to the hospital) presented to the ER by family for evaluation of failure to thrive. Patient lives in the basement of a house with his
siblings. He has history of depression and chronic pain on opiate. He has had no appetite and therefore has not been taking his insulin because he doesn't want his sugar to go too low. He was found on floor by siblings and agreed to come to
hospital given pain in right shoulder.
Shoulder X-Ray: Normal.
A/P:
# Failure to Thrive
# severe protein caloric malnutrition
Possibly secondary to bacteremia/sepsis POA
CPK at 42 hence r/o rhabdo
off gentle IVF
dietary on board
CT CAP ordered for cancer work up, noted possible liver lesion. MRI AP No evidence of liver lesion.
HIV negative, PSA negative
# Chronic bladder incontinence per pt, likely 2/2 previous XRT for prostate cancer
monitor
# Acute on Chronic Bowel incontinence
no sig findings - most likely 2/2 to previous XRT
f/u NSG outpatient
BM regimen for constipation
# Sepsis POA
# Bacteremia with MRSA - unclear source - possibly cellulitis
# Cellulitis
unclear source although does appear to have cellulitis of left forearm - improved erythema
ECHO�7 mm mobile echodensity, possibly endocarditis. Cannot perform CHRISTA due to multiple loose teeth. Plan is to repeat TTE in 2 weeks. Will decide on outpatient CHRISTA after clearance from dental based on TTE results.
Continue medical treatment with IV antibiotics. Vanco switched to Dapto x 6 weeks. PICC placed
ID on board
F/u ID in 2 weeks
# Hyponatremia, Resolved
# Depression
TSH WNL at 0.97
psychiatry on board, rec medical/cancer work up, restarted Zoloft
# Anemia
possibly 2/2 to chronic disease
no obvious gross bleeding
# Hypokalemia
# Hypophosphatemia
# Likely refeeding syndrome
repleted lytes and lytes normalized
cont carb control diet
# Chronic pain, opiate dependence
changed IMPLEMENTATION PROJECT COORDINATOR [place] to Q12 PRN (from q8) given likely contributing to anorexia and FTT
xray shoulder without fracture
lidocaine patch over R shoulder not working; symptoms most likely MSK;
LFTS wnl and MRI without evidence of acute duane
Off Toradol
started fentanyl patch
# Neuropathic pain and ambulatory dysfunction
continue IMPLEMENTATION PROJECT COORDINATOR Pregabalin
PT OT eval recc SNF
most likely worsened by uncontrolled DM
# Diabetes
# hypoglycemia, resolved
A1C 10.5 %
cover with ISS low
Restarted Lantus 5 units and aspart 4u TID
DM HIMS MANAGER management
DVT ppx: Lovenox SQ
DNR
Dispo: PT OT recc SNF
Anticipated Discharge: 24 - 48 hours
Subjective/Interval History
-
Date of Service: October 15, 2023
Objective Data
-
Labs:
Laboratory Results
10/15/23
06:18
WBC 5.6
Hgb 9.7 L
Hct 28.3 L
Plt Count 291
Sodium 136
Potassium 4.2
Chloride 106
Carbon Dioxide 30
BUN 13
Creatinine 0.6 L
Glucose 121 H
Calcium 8.7
Vital Signs:
Vital Signs
Temp Pulse Resp BP Pulse Ox
36.7 C 71 18 137/62 98
10/15/23 07:46 10/15/23 07:46 10/15/23 07:46 10/15/23 07:46 10/15/23 07:46
I&O
10/14/23 10/15/23 10/16/23
06:59 06:59 06:59
Intake Total 1420 / 1420 1130 / 1130
Output Total 860 / 860 1225 / 1225
Balance 560 / 560 -95 / -95
Review of Systems
-
All other systems: Reviewed and negative
Physical Exam
-
General: Well Developed, No Apparent Distress, Comfortable, Conversant, Appears Chronically Ill and Cachectic; Negative Respiratory Distress
HEENT: Normocephalic, Atraumatic, Nose Appears Normal and Ears Appear Normal; Negative Oxygen
Respiratory: Clear to Auscultation and Non Labored Respirations; Negative Accessory Resp Muscle Use
Cardiac: Regular Rhythm and S1/S2
GI: Soft, Nontender, Nondistended and Normal Bowel Sounds
Skin: Warm, Dry and Other ( left forearm wound, improving)
Neuro: Awake, Alert and Oriented
Psych: Calm and Intact Judgement/Insight
Data Reviewed
-
CT Scan: Report Reviewed by me and Discussed with Patient
Ultrasound: Report Reviewed by me
MRI: Report Reviewed by me
Labs: Labs Reviewed by me
[2023-10-15] MEDS: NOVOLOG FLEXPEN-MODERATE RESISTANCE SC ×2 (09:10→18:03)
[2023-10-15] MEDS: NOVOLOG FLEXPEN 7 UNITS SC ×3 (09:11→18:02)
[2023-10-15] MEDS: LYRICA 150 MG PO ×3 (09:11→21:55)
[2023-10-15] MEDS: ZOLOFT 50 MG PO (09:11)
[2023-10-15] MEDS: MIRALAX PO (09:12)
[2023-10-15] MEDS: POLYSPORIN/DOUBLE ANTIBIOTIC 1 APPLIC TOPICAL (10:53)
[2023-10-15 11:00] VITALS: BP 133/58
[2023-10-15 11:19] LABS: Glucose - Point of Care 184 mg/dl (70-99)
[2023-10-15] MEDS: NOVOLOG FLEXPEN-MODERATE RESISTANCE 1 UNITS SC (12:25)
[2023-10-15] MEDS: NORCO 5/325 1 TABLET PO (12:32)
[2023-10-15 15:00] VITALS: BP 115/52
[2023-10-15] MEDS: CUBICIN 8 MG IV (15:24)
--- NOTE | 2023-10-15 15:44 | CM ---
Awaiting [facility] determination to discharge to [facility]
[2023-10-15 16:21] VITALS: BP 120/53; PULSE 65; O2SAT 99
[2023-10-15 16:26] LABS: Glucose - Point of Care 131 mg/dl (70-99)
[2023-10-15] MEDS: LOVENOX 40 MG SC (18:03)
[2023-10-15 21:37] LABS: Glucose - Point of Care 140 mg/dl (70-99)
[2023-10-15] MEDS: LANTUS 0.0500000000000000028 UNITS SC (21:55)
[2023-10-15 23:05] VITALS: BP 147/65
[2023-10-16] MEDS: NORCO 5/325 1 TABLET PO ×2 (00:22→12:33)
--- NOTE | 2023-10-16 05:29 | DOWNTIME ---
There was a [employer] Vermin Exterminator Downtime on 10/16/2023 from 0100 to 10/16/2023 at 0439. Downtime documentation of patient's care, including medication administrations, has been reconciled in the electronic record per guidelines. Refer to the
patient's paper chart under the miscellaneous tab to see printed paper medication records and downtime forms.
[2023-10-16 06:00] VITALS: BMI 17.5
[2023-10-16 07:05] VITALS: BP 106/67
[2023-10-16 07:12] LABS: Glucose - Point of Care 86 mg/dl (70-99)
--- NOTE | 2023-10-16 07:16 | PN.DE.MGMTRT ---
Insulin Management
- -
10/16/2023: Diabetes Management Follow up:
Patient admitted 10/01 with failure to thrive, malnourished, breathing problem.
PMH chronic pain, diabetes, depression, prostate CA. Patient states he has had diabetes at least 6 years, did see endocrine in [place] but patient knew more than provider. He was originally given metformin but he became very ill. Started on
insulin Regular and NPH. Patient states about 6 weeks ago he could not eat due to pain so he stopped his insulin. Patient states his blood sugar drops rapidly, he could be 300 then 50 in 10 minutes.
A1C on admission 10.5%, cr .6, eGFR >60.
He is for SNF at discharge.
Patient is awake, alert and oriented, anxious for transfer.
FBG this AM 86 venous . Will make no change to Lantus, cont 5 units in AM.
Premeal and HS glucose in range yesterday, 131 to 184, required only 1 unit additional corrective insulin. Will make no change to AC novolog 7 units, will decrease moderate corrective insulin to low corrective.
Patient has a working glucose monitor at home.
Diabetes History
- -
Type of Diabetes: 2 requiring insulin
Pre-Admission Diabetes Regimen
Lab Results
Hemoglobin A1c 10.5 % (4.0-5.6) H 10/03/23 06:09
Insulin Pump Settings
IP Diabetes Regimen
10/15/23 10/15/23 10/15/23
07:44 11:17 16:24
POC Glucose 135 H 184 H 131 H
10/15/23 10/16/23
21:36 07:10
POC Glucose 140 H 86
Meal type: Dinner
Meal type: Lunch
Meal type: Breakfast
Amount consumed: 100%
Amount consumed: 100%
Amount consumed: 100%
Patient Education
[2023-10-16] MEDS: NOVOLOG FLEXPEN 7 UNITS SC ×2 (07:49→12:34)
[2023-10-16] MEDS: LYRICA 150 MG PO (07:49)
[2023-10-16] MEDS: MIRALAX PO (07:49)
[2023-10-16] MEDS: ZOLOFT 50 MG PO (07:49)
[2023-10-16] MEDS: POLYSPORIN/DOUBLE ANTIBIOTIC 1 APPLIC TOPICAL (07:50)
[2023-10-16 08:16] VITALS: BP 106/67
--- NOTE | 2023-10-16 10:27 | W.PN.HOSP.TC ---
Addendum entered and electronically signed by Zoe Canchola MD 10/16/23 18:02:
total DC time 35 min
Original Note:
Today's Communication/Plan
-
see A/P
Hopefully dispo to SNF today
Assessment / Plan
Assessment / Plan
HPI: 68 yo man with hx DM, prostate CA, skin cancer, depression with an episode of SI last month (was not brought to the hospital) presented to the ER by family for evaluation of failure to thrive. Patient lives in the basement of a house with his
siblings. He has history of depression and chronic pain on opiate. He has had no appetite and therefore has not been taking his insulin because he doesn't want his sugar to go too low. He was found on floor by siblings and agreed to come to
hospital given pain in right shoulder.
Shoulder X-Ray: Normal.
A/P:
# Failure to Thrive
# severe protein caloric malnutrition
Possibly secondary to bacteremia/sepsis POA
CPK at 42 hence r/o rhabdo. Off gentle IVF
dietary on board
CT CAP ordered for cancer work up, noted possible liver lesion. MRI AP No evidence of liver lesion.
HIV negative, PSA negative
# Chronic bladder incontinence per pt, likely 2/2 previous XRT for prostate cancer
monitor
# Acute on Chronic Bowel incontinence
no sig findings - most likely 2/2 to previous XRT
f/u NSG outpatient
BM regimen for constipation
# Sepsis POA
# Bacteremia with MRSA - unclear source - possibly cellulitis
# Cellulitis
unclear source although does appear to have cellulitis of left forearm - improved erythema
ECHO�7 mm mobile echodensity, possibly endocarditis. Cannot perform CHRISTA due to multiple loose teeth. Plan is to repeat TTE in 2 weeks. Will decide on outpatient CHRISTA after clearance from dental based on TTE results.
Continue medical treatment with IV antibiotics. Vanco switched to Dapto x 6 weeks. PICC placed
ID on board
F/u ID in 2 weeks
# Hyponatremia, Resolved
# Depression
TSH WNL at 0.97
psychiatry on board, rec medical/cancer work up, restarted Zoloft
# Anemia
possibly 2/2 to chronic disease
no obvious gross bleeding
# Hypokalemia
# Hypophosphatemia
# Likely refeeding syndrome
repleted lytes and lytes normalized
cont carb control diet
# Chronic pain, opiate dependence
changed GUILLOTINE TRIMMER [place] to Q12 PRN (from q8) given likely contributing to anorexia and FTT
xray shoulder without fracture
lidocaine patch over R shoulder not working; symptoms most likely MSK;
LFTS wnl and MRI without evidence of acute duane
Off Toradol
started fentanyl patch
# Neuropathic pain and ambulatory dysfunction
continue GUILLOTINE TRIMMER Pregabalin
PT OT eval recc SNF
most likely worsened by uncontrolled DM
# Diabetes
# hypoglycemia, resolved
A1C 10.5 %
cover with ISS low
Restarted Lantus 5 units and aspart 4u TID
DM SORTER LAUNDRY ARTICLES management
DVT ppx: Lovenox SQ
DNR
Dispo: PT OT recc SNF
DW CM
Anticipated Discharge: Today
Subjective/Interval History
-
Date of Service: October 16, 2023
Objective Data
-
Vital Signs:
Vital Signs
Temp Pulse Resp BP Pulse Ox
36.6 C 79 16 106/67 98
10/16/23 07:05 10/16/23 07:05 10/16/23 07:05 10/16/23 07:05 10/16/23 07:05
I&O
10/15/23 10/16/23 10/17/23
06:59 06:59 06:59
Intake Total 1130 / 1130 760 / 760
Output Total 1225 / 1225 604 / 604
Balance -95 / -95 156 / 156
Review of Systems
-
All other systems: Reviewed and negative
Physical Exam
-
General: Well Developed, No Apparent Distress, Comfortable, Conversant, Appears Chronically Ill and Cachectic; Negative Respiratory Distress
HEENT: Normocephalic, Atraumatic, Nose Appears Normal and Ears Appear Normal; Negative Oxygen
Respiratory: Clear to Auscultation and Non Labored Respirations; Negative Accessory Resp Muscle Use
Cardiac: Regular Rhythm and S1/S2
GI: Soft, Nontender, Nondistended and Normal Bowel Sounds
Skin: Warm, Dry and Other ( left forearm wound, improving)
Neuro: Awake, Alert and Oriented
Psych: Calm and Intact Judgement/Insight
Data Reviewed
-
CT Scan: Report Reviewed by me and Discussed with Patient
Ultrasound: Report Reviewed by me
MRI: Report Reviewed by me
Labs: Labs Reviewed by me
--- NOTE | 2023-10-16 10:55 | W.PN.UPDATE ---
Update Note
Progress Note Update
Duration of daptomycihn 10/08-11/18
--- NOTE | 2023-10-16 11:27 | CM ---
[facility] has reviewed PASRR II and approved patient discharge to SNF. Patient has been medically cleared for discharge to [facility]. Transport will be scheduled. Patient, sister, team have been notified.
NURSE TO NURSE REPORT # [phone]
FAX # [phone]
[2023-10-16 12:00] LABS: Glucose - Point of Care 95 mg/dl (70-99)
[2023-10-16 12:29] VITALS: BP 146/62
--- NOTE | 2023-10-16 16:50 | W.DCSUMMARY ---
Discharge Summary
Discharge Data
Date of Admission: 10/08/23
Date of Discharge: 10/16/23
-
Pending Results: No
Hospital Course
Principal Diagnosis:
Failure to Thrive with severe protein caloric malnutrition, possibly related to MRSA bacteremia/sepsis on admission
Left forearm cellulitis
Clinical depression.
Hypokalemia and Hypophosphatemia with likely refeeding syndrome on admission, these have resolved
Diabetes, now insulin dependent
Chronic Diagnoses:�
Chronic bladder and bowel incontinence likely due to previous radiotherapy for prostate cancer
History of prostate cancer status post radiation
Chronic pain opiate dependence, patient was started with fentanyl patch 25 mcg this admission
Neuropathic pain and ambulatory dysfunction at baseline, continue prior to admission Lyrica
History of depression with suicidal ideation
Consultations:�
Psychiatry
Diabetes nurse practitioner
Infectious disease
Procedures:�
PICC line placement
Clinical course:�
This is a 68-year-old male with past medical history as stated above, who presented with failure to thrive. He was found on floor by his sibling.
Problem 1:
Failure to Thrive with severe protein caloric malnutrition, possibly related to MRSA bacteremia/sepsis on admission (see below).
CT CAP was ordered for cancer work up (for his failure to thrive and severe caloric protein malnutrition), and the result was unrevealing.
There was suspicious liver lesion noted on the CT scan, but this was ruled out on subsequent MRI abdomen pelvis.
His HIV and PSA were also checked, both were negative.
Problem 2:
Sepsis with MRSA bacteremia, source could be from his left forearm cellulitis.
He was treated with IV antibiotic vancomycin initially, and this was later switched to IV daptomycin for 6 weeks via PICC per ID.
Of note, his echo noted a 7 mm mobile echodensity, possibly endocarditis. Unfortunately due to his multiple loose teeth, CHRISTA could not be performed.
The plan is to repeat TTE in 2 weeks, and then decide outpatient with regard to CHRISTA (he most likely would need dental clearance for CHRISTA).
He can follow-up with ID in 2 weeks following discharge.
Problem 3:
Clinical depression.
His TSH was WNL at 0.97.
He was restarted with Zoloft (he was taking it at home, but not compliantly) per psychiatry.
Problem 4:
Hypokalemia and Hypophosphatemia with likely refeeding syndrome, which has resolved.
Problem 5:
Diabetes, now insulin dependent.
His A1C was elevated at 10.5 %.
He was started with Lantus 5 units HS and aspart 7 units AC, and he can continue with such regimen following discharge.
As for the rest of his medical problems, they were stable during his hospital stay.
Discharge Plan
-
Patient Disposition: Long-Term/SNF
Discharge Diagnosis/Procedures: Failure to Thrive with severe protein caloric malnutrition; MRSA bacteremia with possible Left forearm cellulitis; Depression; Neuropathic pain and ambulatory dysfunction; Diabetes (A1C 10.5%, started with insulin)
Condition: Fair
Diet: Diabetic, Carb Controlled
Activity: As tolerated
Driving Restrictions: No driving
Wound Care: Wound Care Instructions
Left Forearm- Clean by soaking with Vashe moistened gauze for 2-5 minutes. Apply no-sting barrier around wound and cover with Xeroform and silicone border foam. May add alginate over Xeroform for moderate to heavy drainage. Change daily and PRN for
drainage.
Sacrum- Silicone border foam. Change Q 3days and PRN if loose or soiled.
Follow up at wound care center call for an appointment.
Activity Restrictions/Additional Instructions:
Repeat echo (TTE) in 2 weeks. Will decide on outpatient CHRISTA after clearance from dental based on echo (TTE) results.
Follow up with ID in 2 weeks
Referrals:
Eden Arreguin, DO [Family Provider] - in less than 1 week
Additional Discharge Medication Instructions: You were restarted Zoloft for mood elevation.
You were started with fentanyl patch for better pain control.
You were started with Lantus 5 units and aspart 7 units TID (with meals) for your diabetes
Continue daptomycin for your bacteremia (duration from 10/08 to 11/18)
Prescriptions:
New
fentanyl 25 mcg/hr Patch 72 Hour
1 patch transdermal Q72H Qty: 5 0RF
DAPTOmycin [Cubicin] 400 MG
Syringe [Syringe-Pump] 0 ML
As Directed mls/hr IV Q24H
duration 10/08-11/18
Ordered By: Zoe Canchola MD
Last Taken: 10/15/23 15:24 8 mls
insulin glargine [Lantus Solostar U-100 Insulin] 100 unit/mL (3 mL) insulin pen
5 unit SC QPM Qty: 15 0RF
insulin aspart U-100 100 unit/mL (3 mL) Insulin Pen
7 unit SC AC Qty: 15 0RF
Continued
sertraline 50 mg tablet
50 mg PO DAILY
Patient Comments:
10/02/2023: Taken w/ 25mg = 75mg
pregabalin 150 mg capsule
150 mg PO Q8H
Patient Comments:
10/02/2023: last filled 08/22/23, 90 tabs for 30 days from [facility]
Changed
hydrocodone-acetaminophen 5-325 mg tablet
1 tab PO Q12H PRN (Reason: Pain) Qty: 5 0RF
Patient Comments:
10/02/2023: last filled 08/22/23, 90 tabs for 30 days from [facility]
Discontinued
tizanidine 4 mg tablet
4 mg PO Q8H PRN (Reason: muscle spasms)
sertraline 25 mg tablet
25 mg PO DAILY
Patient Comments:
10/02/2023: Taken w/ 50mg = 75mg
losartan-hydrochlorothiazide 50-12.5 mg tablet
1 tab PO DAILY
Discharge Orders:
Discharge Patient (As Directed); Ordered 10/16/23
Ordered By: Zoe Canchola
Discharge Date and Time
Discharge Date/Time: 10/16/23 13:13
Print Language: GREEK
--- NOTE | 2023-10-17 10:33 | CM ---
CLAUDIA from [employer]/liaison for [facility] requesting Midline insertion information.
Info faxed to Ariella/[facility] at [phone].
== END 2023-10-16 13:13 | DRG 871 ==
LOC: 2 NORTH 12:00
PROVIDERS: Internal Medicine; Physician Assistant Medical; Student in an Organized Health Care Education/Training Program; ADMITTING PHYSICIAN Student in an Organized Health Care Education/Training Program; ATTENDING PHYSICIAN Internal Medicine; CONSULT PHYSICIAN Internal Medicine; CONSULT PHYSICIAN Student in an Organized Health Care Education/Training Program; EMERGENCY PHYSICIAN Emergency Medicine; FAMILY PHYSICIAN Family Medicine; OTHER PHYSICIAN Psychiatry & Neurology Psychiatry
PROC: 02HV33Z Insertion of Infusion Device into Superior Vena Cava, Percutaneous Approach (ICD-10-PCS; 2023-10-12)
DX: A41.02 Sepsis due to Methicillin resistant Staphylococcus aureus (principal); E43 Unspecified severe protein-calorie malnutrition; I33.0 Acute and subacute infective endocarditis; F11.20 Opioid dependence, uncomplicated; E87.1 Hypo-osmolality and hyponatremia; L03.114 Cellulitis of left upper limb; R45.851 Suicidal ideations; G89.29 Other chronic pain; E11.42 Type 2 diabetes mellitus with diabetic polyneuropathy; E11.65 Type 2 diabetes mellitus with hyperglycemia; M25.511 Pain in right shoulder; K08.89 Other specified disorders of teeth and supporting structures; K58.9 Irritable bowel syndrome, unspecified; E87.6 Hypokalemia; I10 Essential (primary) hypertension; R62.7 Adult failure to thrive; E78.5 Hyperlipidemia, unspecified; K21.9 Gastro-esophageal reflux disease without esophagitis; E11.649 Type 2 diabetes mellitus with hypoglycemia without coma; F32.A Depression, unspecified; F41.9 Anxiety disorder, unspecified; L89.151 Pressure ulcer of sacral region, stage 1; R32 Unspecified urinary incontinence; D63.8 Anemia in other chronic diseases classified elsewhere; R26.2 Difficulty in walking, not elsewhere classified; E83.39 Other disorders of phosphorus metabolism; Z66 Do not resuscitate; Z91.199 Patient's noncompliance with other medical treatment and regimen due to unspecified reason; Z85.46 Personal history of malignant neoplasm of prostate; Z85.828 Personal history of other malignant neoplasm of skin; Z79.4 Long term (current) use of insulin; Z91.51 Personal history of suicidal behavior; Z87.891 Personal history of nicotine dependence; Z11.52 Encounter for screening for COVID-19; Z91.148 Patient's other noncompliance with medication regimen for other reason; Z87.442 Personal history of urinary calculi
CPT/HCPCS: 71260; 72070; 72100; 72148; 73030; 74177; 74183; 76700; 80048; 80053; 81003; 82550; 82565; 82607; 82728; 82746; 82962; 83036; 83540; 83550; 83735; 84100; 84443; 85025; 85027; 87040; 87147; 87186; 87205; 87389; 87502; 87811; 93005; 93306; 96361; 96374; 97116; 97530; 97535; 99285; A9581; G0103; J0878; J2785; Q9967

== ENCOUNTER → 2023-11-06 11:59 | Outpatient (REF) | payer MEDICARE, SELFPAY | LOC: RADI 11:59 | PROVIDERS: ATTENDING PHYSICIAN Student in an Organized Health Care Education/Training Program; FAMILY PHYSICIAN Family Medicine | DX: T82.594A Other mechanical complication of infusion catheter, initial encounter (principal); Y84.8 Other medical procedures as the cause of abnormal reaction of the patient, or of later complication, without mention of misadventure at the time of the procedure; I33.9 Acute and subacute endocarditis, unspecified | CPT/HCPCS: 36584 ==

== ENCOUNTER → 2023-12-11 10:25 | Outpatient (REF) | payer MEDICARE, SELFPAY | LOC: RCS 10:25 | PROVIDERS: ATTENDING PHYSICIAN Nurse Practitioner; FAMILY PHYSICIAN Family Medicine | DX: I35.8 Other nonrheumatic aortic valve disorders (principal) | CPT/HCPCS: 93306 ==

== ENCOUNTER → 2024-06-08 08:45 | Outpatient (REF) | payer MEDICARE, OTHER, SELFPAY | LOC: RCS 08:45 | PROVIDERS: ATTENDING PHYSICIAN Internal Medicine; FAMILY PHYSICIAN Family Medicine | DX: I35.8 Other nonrheumatic aortic valve disorders (principal); I50.32 Chronic diastolic (congestive) heart failure; I36.1 Nonrheumatic tricuspid (valve) insufficiency; I35.1 Nonrheumatic aortic (valve) insufficiency; I34.0 Nonrheumatic mitral (valve) insufficiency | CPT/HCPCS: 93306 ==

== ENCOUNTER 2025-04-25 09:57 | Emergency (ER) | payer MEDICARE, OTHER, SELFPAY ==
[2025-04-25 10:28] LABS: Hematocrit 41.1 % (39.0-52.0); Hemoglobin 13.1 g/dL (13.0-18.0); Mean Corp Hgb Conc. 31.9 g/dL (33.0-37.0); Mean Corpuscular Volume 89.0 fL (80.0-94.0); Nucleated Red Blood Cells % 0 % (-); Platelet Count 158 10^3/uL (130-400); Red Cell Dist. Width 15.3 % (11.5-14.5)
[2025-04-25 10:42] LABS: ALT (SGPT) 16 U/L (0-50); AST (SGOT) 23 U/L (17-59); Albumin 4.4 g/dl (3.5-5.0); Alkaline Phosphatase 114 U/L (38-126); Blood Urea Nitrogen 23 mg/dl (9-20); Calcium 8.9 mg/dl (8.4-10.2); Carbon Dioxide 26 mmol/L (22-30); Chloride 103 mmol/L (98-107); Glucose 249 mg/dl (70-99); Potassium 4.1 mmol/L (3.5-5.1); Sodium 137 mmol/L (135-145); Total Protein 7.4 g/dl (6.3-8.2); eGFR 58.37
[2025-04-25 12:21] LABS: Urine Character Clear (Clear)
--- NOTE | 2025-04-25 13:11 | ED.GENMED ---
History of Present Illness
General
Chief Complaint: Fall
Source: patient
Exam Limitations: none
Time Seen by Provider: 04/25/25 12:38
Nursing documentation reviewed up to this point in time: agreed with
History of Present Illness
History of Present Illness:
Note:
CHIEF COMPLAINT(S)
Fall and concern about potential stroke.
HISTORY OF PRESENT ILLNESS
The patient is a 70-year-old male who presented to the emergency department after experiencing repeated falls. The patient reports being in a long-term rehabilitation facility and mentions that he fell today, hitting his knee but not his head. He
experiences pain in the knee but denies any significant injuries resulting from the fall. The patient utilizes a fentanyl patch for pain management but did not specify the site or nature of the pain it is intended to treat. He expressed concern
about the possibility of having a stroke, indicating apprehension about sudden neurological events.
PHYSICAL EXAM
General: Alert, no acute distress.
Skin: Warm, dry.
Head: Normocephalic, atraumatic.
Neck: Supple, trachea midline.
Eye, Ears, Nose, Mouth and Throat: Oral mucosa moist.
Cardiovascular: Normal peripheral perfusion, no edema.
Respiratory: Respirations are non-labored.
Gastrointestinal: Abdomen nondistended.
Back: Normal range of motion, normal alignment.
Musculoskeletal: Normal range of motion, normal strength, no tenderness noted in the knees.
Neurological: Alert and oriented to person, place, time, and situation, no focal neurological deficit observed.
Psychiatric: Cooperative, appropriate mood & affect.
PLAN
The patient is advised to follow up with his primary care physician regarding the concern about stroke risk and the use of blood thinners, as the emergency department does not manage preventative care for strokes.
DIFFERENTIAL DIAGNOSIS
The Differential Diagnosis includes, in no particular order and is not limited to:
1. Orthostatic hypotension
2. Mechanical fall
3. Medication side effects
4. Transient ischemic attack
5. Cardiac arrhythmia
6. Peripheral neuropathy
7. Vestibular dysfunction
8. Parkinsons disease
9. Syncope
10. Silent stroke
Disposition:
SUMMARY OF ENCOUNTER
The patient is a 70-year-old male presenting to the emergency department after a fall. He reports no syncope, changes in mental status, or acute distress. The patient is alert and oriented, expressing a desire to return home. He denies dysuria,
fever, or chills. His urinalysis is normal, and there is no suspicion of cerebrovascular accident (CVA). Based on his stability, the patient is deemed safe for discharge with instructions to follow up with his primary care provider.
DISPOSITION
Discharge.
PLAN
The patient is advised to follow up with his primary care physician to discuss further preventative care and evaluation of fall risk, as well as stroke risk management.
PATIENT EDUCATION AND COUNSELING
The patient was counseled on the importance of follow-up care with his primary care provider to manage fall risk and concerns about stroke.
FOLLOW-UP INSTRUCTIONS
Follow up with primary care provider to discuss fall risk and stroke prevention.
MEDICAL DECISION MAKING
-Complexity of Data Reviewed:
Chronic conditions affecting care: History of multiple falls.
Data:
Category 1: None specified.
Category 3: None specified.
DIAGNOSIS
Fall (R29.6).
Past History
Past History
ED Past Medical History: Other (Diabetes, small fiber peripheral neuropathy, IBS, prostate cancer)
Social History
Tobacco: Non-smoker
Alcohol: None
Drug: None
Living: with family
Phy Exam
Physical Exam
Physical Exam:
.
Course
Orders/Labs/Results
Orders:
Orders
04/25/25 10:23
Complete Blood Count/With Diff Urgent
Comprehensive Metabolic Panel Urgent
04/25/25 12:00
Urinalysis Urgent
Date Specimen was Collected: 04/25/25
Time Specimen was Collected: 11:55
Abnormal Lab Results
04/25/25 04/25/25
10: 12:00
RBC 4.62 L 10^6/uL
(4.70-6.10)
MCHC 31.9 L g/dL
(33.0-37.0)
RDW 15.3 H %
(11.5-14.5)
BUN 23 H mg/dl
(9-20)
Glucose 249 H mg/dl
(70-99)
Urine Glucose 4+ A
(Negative)
04/25/25 10:23
04/25/25 10:23
Vital Signs
Initial and Last Documented VS:
Initial Vital Signs
Temp Pulse Resp Pulse Ox
98.4 F 64 16 96
04/25/25 10:11 04/25/25 10:11 04/25/25 10:11 04/25/25 10:11
Last Documented Vital Signs
Temp Pulse Resp BP Pulse Ox
98.4 F 70 20 127/91 98
04/25/25 10:11 04/25/25 13:14 04/25/25 13:14 04/25/25 13:14 04/25/25 13:14
*Pulse Oximetry
SaO2: 96
Oxygen Mode of Delivery: Room air
Patient hypoxic: no
*Critical Care Note
Total Time (30-74mins, 75-104mins- exclusive of procedures): Not Applicable
ED Attending Note
-
Portions of this chart may have been created with voice recognition software.� Occasional wrong word or��sound alike� substitutions may have occurred due to the inherent limitations of voice recognition software.
Discharge Plan
Departure
Patient Disposition: [facility]/SNF
Date of Disposition: 04/25/25
Time of Disposition: 13:11
Condition: Good
Discharge Problem:
Fall
Instructions: Preventing falls in adults, BLOOD PRESSURE
Prescriptions:
No Action
sertraline 50 mg tablet
50 mg PO DAILY
Patient Comments:
10/02/2023: Taken w/ 25mg = 75mg
pregabalin 150 mg capsule
150 mg PO Q8H
Patient Comments:
10/02/2023: last filled 08/22/23, 90 tabs for 30 days from [facility]
fentanyl 25 mcg/hr Patch 72 Hour
1 patch transdermal Q72H Qty: 5 0RF
DAPTOmycin [Cubicin] 400 MG
Syringe [Syringe-Pump] 0 ML
As Directed mls/hr IV Q24H
duration 10/08-11/18
Ordered By: Zoe Canchola MD
Last Taken: Unknown
insulin glargine [Lantus Solostar U-100 Insulin] 100 unit/mL (3 mL) insulin pen
5 unit SC QPM Qty: 15 0RF
insulin aspart U-100 100 unit/mL (3 mL) Insulin Pen
7 unit SC AC Qty: 15 0RF
hydrocodone-acetaminophen 5-325 mg tablet
1 tab PO Q12H PRN (Reason: Pain) Qty: 5 0RF
Patient Comments:
10/02/2023: last filled 08/22/23, 90 tabs for 30 days from [facility]
Referrals:
Bryce Hernandez MD [Family Provider]
Interventions
Interventions:
*Risk Screen - Suicide Last Done: 04/25/25 12:13
*General Assessment Last Done: 04/25/25 12:13
*Neglect/Abuse Screening Last Done: 04/25/25 12:13
*ED- Fall Risk Assessment Last Done: 04/25/25 12:13
*ED COVID-19 Vaccine History Last Done: 04/25/25 12:13
*ED Influenza Vaccine History Last Done: 04/25/25 12:13
ED-Musculoskeletal Assessment Last Done: 04/25/25 12:11
ED- Neurological Assessment Last Done: 04/25/25 12:11
ED-Skin Assessment Last Done: 04/25/25 12:11
Discharge Date and Time
Print Language: [id number]
[2025-04-25 13:14] VITALS: BP 127/91
== END 2025-04-25 16:13 ==
LOC: EMR 09:57
PROVIDERS: EMERGENCY PHYSICIAN Emergency Medicine; FAMILY PHYSICIAN Internal Medicine
DX: Z04.3 Encounter for examination and observation following other accident (principal); W19.XXXA Unspecified fall, initial encounter; R29.6 Repeated falls; E11.42 Type 2 diabetes mellitus with diabetic polyneuropathy; K58.9 Irritable bowel syndrome, unspecified; Z79.4 Long term (current) use of insulin
CPT/HCPCS: 99283; 80053; 81003; 85025